=== PATIENT | male | born 1950 | race Caucasian/White ===

== ENCOUNTER 2021-09-03 15:52 | Inpatient (IN) | payer OTHER, MEDICARE ==
[2021-09-03] MEDS ORDERED: MORPHINE SULFATE 4 MG/ML SYRINGE IVP STA (16:30)
[2021-09-03] MEDS ORDERED: ONDANSETRON 4 MG/2 ML VIAL IVP STA (16:30)
--- NOTE | 2021-09-03 17:03 | XR ---
EXAMINATION TYPE: XR ankle limited RT DATE OF EXAM: 09/03/2021 COMPARISON: NONE HISTORY: Ankle pain TECHNIQUE: 2 views FINDINGS: There is oblique fracture of the distal tibia and fibula. There is 50% lateral displacement of the distal tibia fragment and 100% medial displacement of the distal fibular fragment. The ankle mortise is anatomic. There is plantar calcaneal spurring. IMPRESSION: Fractures of distal tibia and fibula. No ankle joint abnormality.
--- NOTE | 2021-09-03 17:05 | XR ---
EXAMINATION TYPE: XR tibia fibula RT DATE OF EXAM: 09/03/2021 COMPARISON: NONE HISTORY: Pain TECHNIQUE: 4 views FINDINGS: There are oblique fractures of the distal shaft of the tibia and fibula described in the [facility] x-ray report. There is 50% lateral displacement distal tibia fragment and 100% medial displacemen t distal fibular fragment. There is oblique fracture through the proximal shaft of the fibula with 100% offset. The knee joint a ppears anatomic. No knee joint effusion. IMPRESSION: Multiple acute fractures of the tibia and fibula as above.
[2021-09-03] MEDS ORDERED: NALOXONE 0.4 MG/ML 1 ML VIAL IV PRN (17:20)
[2021-09-03] MEDS ORDERED: ONDANSETRON 4 MG/2 ML VIAL IVP PRN (17:20)
--- NOTE | 2021-09-03 17:26 | ED ---
Fall HPI - General Source: patient, EMS Mode of arrival: EMS <Venice Tuttle - Last Filed: 09/04/21 00:20> <Nathaniel Leeah Jasmin - Last Filed: 09/10/21 00:06> - General Chief Complaint: Fall Stated Complaint: trauma rt ankle Time Seen by Provider: 09/03/21 16:11 - History of Present Illness Initial Comments: 71-year-old male patient presents to the emergency department via EMS for evaluation of right leg pain after a slip and fall injury. Patient states he is walking in the driveway he slipped felt a snap in his leg and then fell down. He was able to crawl backwards to get into the house to call 911. He denies hitting his head or losing consciousness. He denies any neck or back pain. States most of his pain is in the mid to lower leg. Denies numbness or tingling to the foot. He denies any history of injury to this leg. Denies use of blood thinning medications. Patient denies any chest pain, shortness of breath, dizziness, weakness, abdominal pain, nausea, vomiting, or difficulties with bowel movements or urination. (Venice Tuttle) - Related Data Home Medications Medication Instructions Recorded Confirmed Multivit-Min/FA/Lycopen/Lutein 1 tab PO DAILY 09/03/21 09/03/21 [Centrum Silver Men Tablet] Tamsulosin [Flomax] 0.4 mg PO HS 09/03/21 09/03/21 amLODIPine [Norvasc] 5 mg PO DAILY 09/03/21 09/03/21 Previous Rx's Medication Instructions Recorded Aspirin 325 mg PO DAILY #21 tab 09/07/21 Cyclobenzaprine [Flexeril] 10 mg PO HS #20 tab 09/07/21 HYDROcodone/APAP 7.5-325MG [Chandler 1 - 2 each PO Q6HR PRN #32 tab 09/07/21 7.5] Sennosides/Docusate Sodium [Senna 1 each PO DAILY #20 capsule 09/07/21 Plus 8.6-50 mg Softgel] Allergies Allergy/AdvReac Type Severity Reaction Status Date / Time No Known Allergies Allergy Verified 09/03/21 19:54 Review of Systems ROS Other: All systems not noted in ROS Statement are negative. <Venice Tuttle - Last Filed: 09/04/21 00:20> ROS Other: All systems not noted in ROS Statement are negative. <Lin Lee - Last Filed: 09/10/21 00:06> ROS Statement: Those systems with pertinent positive or pertinent negative responses have been documented in the HPI. Past Medical History Past Medical History: Hypertension, Prostate Disorder History of Any Multi-Drug Resistant Organisms: None Reported Past Surgical History: No Surgical Hx Reported Past Psychological History: No Psychological Hx Reported Smoking Status: Never smoker Past Alcohol Use History: Daily Past Drug Use History: Marijuana <Venice Tuttle - Last Filed: 09/04/21 00:20> General Exam Limitations: no limitations General appearance: alert, in no apparent distress, other (Physical well- developed, well-nourished adult male in no acute distress.) Head exam: Present: atraumatic, normocephalic, normal inspection ENT exam: Present: normal exam, normal oropharynx, mucous membranes moist Neck exam: Present: normal inspection, full ROM, other (Nontender, no step-off, no deformity to firm midline palpation of the posterior cervical spine. Full range of motion without pain or limitation.). Absent: tenderness, meningismus, lymphadenopathy Respiratory exam: Present: normal lung sounds bilaterally. Absent: respiratory distress, wheezes, rales, rhonchi, stridor Cardiovascular Exam: Present: regular rate, normal rhythm, normal heart sounds. Absent: systolic murmur, diastolic murmur, rubs, gallop, clicks GI/Abdominal exam: Present: soft, normal bowel sounds. Absent: distended, tenderness, guarding, rebound, rigid Extremities exam: Present: full ROM, normal capillary refill, other (There is swelling and ecchymosis noted to the mccloud on the right. Edema noted about the right ankle. Skin to the leg is pink, warm, dry. Cap refill less than 3 seconds. Pedal pulses 2+.). Absent: normal inspection, tenderness, pedal edema, joint swelling, calf tenderness Back exam: Present: normal inspection, other (Nontender, no step-off, no deformity to firm midline palpation of the thoracic and lumbar vertebrae. Full range of motion without pain or limitation.). Absent: vertebral tenderness Neurological exam: Present: alert, oriented X3, CN II-XII intact Psychiatric exam: Present: normal affect, normal mood Skin exam: Present: warm, dry, intact, normal color. Absent: rash <Venice Tuttle - Last Filed: 09/04/21 00:20> Course Vital Signs 09/03/21 09/03/21 09/03/21 16:02 16:53 19:45 Temperature 98.8 F 98.0 F Pulse Rate 87 93 98 Pulse Rate [ Pulse Oximetery ] Respiratory 20 20 20 Rate Blood Pressure 125/78 130/54 131/82 Blood Pressure [Right Arm Supine] O2 Sat by Pulse 97 97 96 Oximetry 09/03/21 20:00 Temperature 98.4 F Pulse Rate Pulse Rate [ 88 Pulse Oximetery ] Respiratory 18 Rate Blood Pressure Blood Pressure 130/84 [Right Arm Supine] O2 Sat by Pulse 94 L Oximetry Procedures - Orthopedic Fracture Reduction Fracture #1 Consent Obtained: verbal consent Side: right Fracture Reduction Location: tibia, fibula Analgesia: other (Dilaudid, Ativan IVP) Technique: direct manipulation, traction/counter-traction Post Reduction X-rays Demonstrate: other (No change in position of fracture fragments, foot is now in anatomical alignmen.) Post-Reduction Neuro Exam: intact, no change Post-Reduction Vascular Exam: intact, no change Splint Applied: Yes Patient Tolerated Procedure: well, no complications - Orthopedic Splinting/Casting Injury #1 Side: right Lower Extremity Injury Location: long leg Lower Extremity Immobilizer: posterior splint, stirrup splint, Alex wrap, sy nthetic pre-padded splint <Venice Tuttle - Last Filed: 09/04/21 00:20> Medical Decision Making - Lab Data Result diagrams: 09/03/21 17:36 09/03/21 17:36 - EKG Data -: EKG Interpreted by Oh - Radiology Data Radiology results: report reviewed, image reviewed <Venice Tuttle - Last Filed: 09/04/21 00:20> - Lab Data Result diagrams: 09/06/21 02:57 09/06/21 02:57 <Lin Lee - Last Filed: 09/10/21 00:06> - Medical Decision Making 71-year-old male patient presented to the emergency department today for evaluation of right lower leg pain after a slip and fall in his driveway. Physical examination did reveal soft tissue swelling, abnormal external rotation of the right foot. Xrays reviewed and showed proximal and distal fibula fracture, distal tibial shaft fracture. Significant displacement of all fragments. Ankle is intact. We were able to improve alignment of the foot, placed a splint. Labs, EKG, x-ray were entered for presurgical clearance. Dr. Goodman lam is excepting. We'll consult medicine for clearance. Patient is agreeable this plan. My attending is . (Venice Tuttle) I was available for consultation in the emergency department. The history and physical exam were done by the midlevel provider. I was consulted for this patients care. I reviewed the case with the midlevel provider and based on their presentation of the patient, I agree with the assessment, medical decision making and plan of care as documented. Chart was dictated using [employer] dictation software. Attempts were made to correct any dictation errors however some typographical errors may persist. Patient was seen during a national state of emergency due to the Covid-19 pandemic. (Lin Lee) - Lab Data Lab Results 09/03/21 09/03/21 09/03/21 Range/Units 17:36 17:36 17:36 WBC 17.5 H (3.8-10.6) k/uL RBC 4.72 (4.30-5.90) m/uL Hgb 16.3 (13.0-17.5) gm/dL Hct 48.1 (39.0-53.0) % MCV 101.9 H (80.0-100.0) fL MCH 34.5 (25.0-35.0) pg MCHC 33.8 (31.0-37.0) g/dL RDW 13.3 (11.5-15.5) % Plt Count 168 (150-450) k/uL MPV 8.2 Neutrophils % 87 % Lymphocytes % 7 % Monocytes % 4 % Eosinophils % 0 % Basophils % 0 % Neutrophils # 15.3 H (1.3-7.7) k/uL Lymphocytes # 1.2 (1.0-4.8) k/uL Monocytes # 0.7 (0-1.0) k/uL Eosinophils # 0.1 (0-0.7) k/uL Basophils # 0.1 (0-0.2) k/uL Macrocytosis Slight PT 10.4 (9.0-12.0) sec INR 0.9 (<1.2) APTT 23.9 (22.0-30.0) sec Sodium 135 L (137-145) mmol/L Potassium 4.1 (3.5-5.1) mmol/L Chloride 102 (98-107) mmol/L Carbon Dioxide 24 (22-30) mmol/L Anion Gap 9 mmol/L BUN 12 (9-20) mg/dL Creatinine 0.72 (0.66-1.25) mg/dL Est GFR (CKD-EPI)AfAm >90 (>60 ml/min/1.73 sqM) Est GFR (CKD-EPI)NonAf >90 (>60 ml/min/1.73 sqM) Glucose 120 H (74-99) mg/dL Calcium 9.2 (8.4-10.2) mg/dL Total Bilirubin 0.7 (0.2-1.3) mg/dL AST 26 (17-59) U/L ALT 17 (4-49) U/L Alkaline Phosphatase 110 (38-126) U/L Total Protein 7.2 (6.3-8.2) g/dL Albumin 4.3 (3.5-5.0) g/dL TSH (0.350-5.500) uIU/mL Coronavirus (PCR) (Not Detectd) Blood Type Blood Type Confirm Blood Type Recheck Bld Type Recheck Status Antibody Screen Spec Expiration Date 09/03/21 09/03/21 09/03/21 Range/Units 17:36 17:36 20:51 WBC (3.8-10.6) k/uL RBC (4.30-5.90) m/uL Hgb (13.0-17.5) gm/dL Hct (39.0-53.0) % MCV (80.0-100.0) fL MCH (25.0-35.0) pg MCHC (31.0-37.0) g/dL RDW (11.5-15.5) % Plt Count (150-450) k/uL MPV Neutrophils % % Lymphocytes % % Monocytes % % Eosinophils % % Basophils % % Neutrophils # (1.3-7.7) k/uL Lymphocytes # (1.0-4.8) k/uL Monocytes # (0-1.0) k/uL Eosinophils # (0-0.7) k/uL Basophils # (0-0.2) k/uL Macrocytosis PT (9.0-12.0) sec INR (<1.2) APTT (22.0-30.0) sec Sodium (137-145) mmol/L Potassium (3.5-5.1) mmol/L Chloride (98-107) mmol/L Carbon Dioxide (22-30) mmol/L Anion Gap mmol/L BUN (9-20) mg/dL Creatinine (0.66-1.25) mg/dL Est GFR (CKD-EPI)AfAm (>60 ml/min/1.73 sqM) Est GFR (CKD-EPI)NonAf (>60 ml/min/1.73 sqM) Glucose (74-99) mg/dL Calcium (8.4-10.2) mg/dL Total Bilirubin (0.2-1.3) mg/dL AST (17-59) U/L ALT (4-49) U/L Alkaline Phosphatase (38-126) U/L Total Protein (6.3-8.2) g/dL Albumin (3.5-5.0) g/dL TSH (0.350-5.500) uIU/mL Coronavirus (PCR) Not Detected (Not Detectd) Blood Type O Positive Blood Type Confirm O Positive Blood Type Recheck No Previous Record Bld Type Recheck Status CABO Indicated Antibody Screen NEGATIVE Spec Expiration Date 09/06/2021 - 233509/05/21 Range/Units 03:39 WBC (3.8-10.6) k/uL RBC (4.30-5.90) m/uL Hgb (13.0-17.5) gm/dL Hct (39.0-53.0) % MCV (80.0-100.0) fL MCH (25.0-35.0) pg MCHC (31.0-37.0) g/dL RDW (11.5-15.5) % Plt Count (150-450) k/uL MPV Neutrophils % % Lymphocytes % % Monocytes % % Eosinophils % % Basophils % % Neutrophils # (1.3-7.7) k/uL Lymphocytes # (1.0-4.8) k/uL Monocytes # (0-1.0) k/uL Eosinophils # (0-0.7) k/uL Basophils # (0-0.2) k/uL Macrocytosis PT (9.0-12.0) sec INR (<1.2) APTT (22.0-30.0) sec Sodium (137-145) mmol/L Potassium (3.5-5.1) mmol/L Chloride (98-107) mmol/L Carbon Dioxide (22-30) mmol/L Anion Gap mmol/L BUN (9-20) mg/dL Creatinine (0.66-1.25) mg/dL Est GFR (CKD-EPI)AfAm (>60 ml/min/1.73 sqM) Est GFR (CKD-EPI)NonAf (>60 ml/min/1.73 sqM) Glucose (74-99) mg/dL Calcium (8.4-10.2) mg/dL Total Bilirubin (0.2-1.3) mg/dL AST (17-59) U/L ALT (4-49) U/L Alkaline Phosphatase (38-126) U/L Total Protein (6.3-8.2) g/dL Albumin (3.5-5.0) g/dL TSH 0.855 (0.350-5.500) uIU/mL Coronavirus (PCR) (Not Detectd) Blood Type Blood Type Confirm Blood Type Recheck Bld Type Recheck Status Antibody Screen Spec Expiration Date - EKG Data EKG Comments: EKG obtained at 1820 shows sinus rhythm with a rate of 88, MA interval 163, QRS duration 98, QT 366, QTc 412. No evidence of ST elevation or depression. ( Venice Tuttle) - Radiology Data 2 views of the right ankle are obtained. Report was reviewed in its entirety. Impression by Dr. Vieira shows fractures of the distal tibia and fibula. No ankle joint abnormality. Views of the right tib-fib are obtained. Report is reviewed in its entirety. Impression by Dr. Vieira shows oblique fractures the distal shaft of the tibia and fibula described an ankle x-ray report. There is 50% lateral displacement of the distal tibia fragment 100% medial displacement of the distal fibular fragment. There is oblique fractures of the proximal shaft of the fibula for 100% offset. The knee joint appears anatomic. No knee joint effusion. Single view of the chest is obtained. Report reviewed in its entirety. Impression by Dr. Vickers shows mild interstitial fibrotic changes. Normal heart. 4 views of the right tib-fib are obtained. Report was reviewed in its entirety. Impression by Dr. Vieira shows multiple fractures without change in position compared to initial exam. (Venice Tuttle) Disposition Decision to Admit Reason: Admit from EC Decision Date: 09/03/21 Decision Time: 17:27 <Venice Tuttle - Last Filed: 09/04/21 00:20> <Lin Lee - Last Filed: 09/10/21 00:06> Clinical Impression: Fracture of right tibia and fibula Disposition: ADMITTED IP TO THIS [facility] Condition: Good
[2021-09-03 17:50] LABS: Basophils # (A) 0.1 k/uL (0-0.2); Basophils % (A) 0 %; Eosinophils # (A) 0.1 k/uL (0-0.7); Eosinophils % (A) 0 %; HCT 48.1 % (39.0-53.0); HGB 16.3 gm/dL (13.0-17.5); Lymphocytes # (A) 1.2 k/uL (1.0-4.8); Lymphocytes % (A) 7 %; MCH 34.5 pg (25.0-35.0); MCHC 33.8 g/dL (31.0-37.0); MCV 101.9 fL (80.0-100.0); Macrocytosis Slight; Mean Platelet Volume 8.2; Monocytes # (A) 0.7 k/uL (0-1.0); Monocytes % (A) 4 %; Neutrophils # (A) 15.3 k/uL (1.3-7.7); Neutrophils % (A) 87 %; Platelet Count 168 k/uL (150-450); RBC 4.72 m/uL (4.30-5.90); RDW 13.3 % (11.5-15.5); WBC 17.5 k/uL (3.8-10.6)
--- NOTE | 2021-09-03 17:50 | XR ---
EXAMINATION TYPE: XR chest 1V DATE OF EXAM: 09/03/2021 COMPARISON: NONE HISTORY: Preop TECHNIQUE: Single view FINDINGS: There is no heart failure no confluent pneumonic infiltrate. Costophrenic angles are clear. There is slight coarsening of interstitial markings. IMPRESSION: Mild interstitial fibrotic changes. Normal heart.
[2021-09-03 17:57] LABS: ALT 17 U/L (4-49); AST 26 U/L (17-59); African American GFR (CKD) >90 (>60 ml/min/1.73 sqM); Albumin 4.3 g/dL (3.5-5.0); Alkaline Phosphatase 110 U/L (38-126); Anion Gap 9 mmol/L; Blood Urea Nitrogen 12 mg/dL (9-20); Calcium 9.2 mg/dL (8.4-10.2); Carbon Dioxide 24 mmol/L (22-30); Chloride 102 mmol/L (98-107); Glucose 120 mg/dL (74-99); Non-African American GFR(CKD) >90 (>60 ml/min/1.73 sqM); Potassium 4.1 mmol/L (3.5-5.1); Sodium 135 mmol/L (137-145); Total Bilirubin 0.7 mg/dL (0.2-1.3); Total Protein 7.2 g/dL (6.3-8.2)
[2021-09-03 18:01] LABS: INR 0.9 (<1.2); Partial Thromboplastin Time 23.9 sec (22.0-30.0); Prothrombin Time 10.4 sec (9.0-12.0)
[2021-09-03] MEDS ORDERED: LORazepam 2 MG/ML INJ IV STA (18:23)
[2021-09-03] MEDS ORDERED: HYDROmorphone 1 MG/ML 1 ML SYRINGE IVP STA (18:23)
--- NOTE | 2021-09-03 19:19 | XR ---
EXAMINATION TYPE: XR tibia fibula RT DATE OF EXAM: 09/03/2021 COMPARISON: Today HISTORY: Post reduction TECHNIQUE: 4 views FINDINGS: There are fractures of the distal tibia and fibula. There is 50% lateral displacement dista l tibia fragment. There is 100% medial displacement distal fibular fragment. There is oblique fractur e of the proximal shaft of the fibula. Ankle joint and knee joint appear anatomic. IMPRESSION: Multiple fractures without change in position compared to initial exam.
[2021-09-04] MEDS: MORPHINE SULFATE 4 MG/ML SYRINGE IV PRN ×2 (05:57→21:05)
--- NOTE | 2021-09-04 09:52 | P.HPOR ---
History of Present Illness H&P Date: 09/04/21 Chief Complaint: right leg pain Patient is a 71-year-old male presenting to the emergency department yesterday, 09/03/2021 with a chief complaint of right leg pain after fall. Patient was seen this morning at bedside with Alex bandage over right lower extremity. Patient says yesterday he was in his driveway walking when he slipped and heard a snap as he fell to the ground. Patient says he was able to crawl into his house and called 911. Patient denies any loss of consciousness/hitting his head. Patient says most of his pain is in his lower leg on the right side. Patient denies back pain/pain in any other extremities/joints. Patient states there is some radiation of pain up to his knee. Patient says he is not on any blood thinners. Patient denies any previous orthopedic surgical history. Patient denies chest pain, fever, shortness of breath, nausea, vomiting, change in vision, loss of bowel/bladder control. Patient denies any numbness/tingling in the leg. Patient denies any saddle anesthesia. Past Medical History Past Medical History: Hypertension, Prostate Disorder Additional Past Medical History / Comment(s): Had issues with kidney's possibly needed a stent; never followed through History of Any Multi-Drug Resistant Organisms: None Reported Past Surgical History: No Surgical Hx Reported Additional Past Surgical History / Comment(s): colonoscopy Past Anesthesia/Blood Transfusion Reactions: No Reported Reaction Past Psychological History: No Psychological Hx Reported Smoking Status: Never smoker Past Alcohol Use History: Daily Past Drug Use History: Marijuana Medications and Allergies Home Medications Medication Instructions Recorded Confirmed Type Multivit-Min/FA/Lycopen/Lutein 1 tab PO DAILY 09/03/21 09/03/21 History [Centrum Silver Men Tablet] Tamsulosin [Flomax] 0.4 mg PO HS 09/03/21 09/03/21 History amLODIPine [Norvasc] 5 mg PO DAILY 09/03/21 09/03/21 History Allergies Allergy/AdvReac Type Severity Reaction Status Date / Time No Known Allergies Allergy Verified 09/03/21 19:54 Physical Examination Inspection: Alex bandage and a posterior short leg and stirrup splint is present on the right lower extremity. There is significant swelling and ecchymosis on the right mccloud edema present in the right ankle. Sensations equal, symmetric, bilateral intact throughout the upper and lower extremities. Significant TTP along the right lower extremity especially in the mccloud. NTTP throughout rest of exam. Patient is able to wiggle toes in right foot. Dorsalis pedis pulses are intact 2+. Capillary refill under 3 seconds in digits of foot. Patient is able to lift right leg off of bed under his own power. Patient does have limited range of motion in right ankle dorsi/plantar flexion. Patient unable to flex at his right knee at this time. Motor - 2+/5 resisted knee flexion/extension and right ankle dorsi/plantar flexion. Other extremities 5+/5 in all the major motor groups. Negative Homans bilaterally. Results - Labs Labs: Abnormal Lab Results - Last 24 Hours (Table) 09/03/21 09/03/21 Range/Units 17:36 17:36 WBC 17.5 H (3.8-10.6) k/uL MCV 101.9 H (80.0-100.0) fL Neutrophils # 15.3 H (1.3-7.7) k/uL Sodium 135 L (137-145) mmol/L Glucose 120 H (74-99) mg/dL H & H 09/03/21 Range/Units 17:36 Hgb 16.3 (13.0-17.5) gm/dL Hct 48.1 (39.0-53.0) % Coagulation 09/03/21 Range/Units 17:36 INR 0.9 (<1.2) Result Diagrams: 09/03/21 17:36 09/03/21 17:36 Assessment and Plan Assessment: 1. Right tibia distal shaft fracture; right fibula fracture Plan: 1. Right tibia distal shaft fracture; right fibula fracture - patient stable this morning seen at bedside in a posterior short leg and stirrup splint. X- rays of the right tibia/fibula reveal distal tibial shaft fracture with mild displacement distal tibia fragment. Oblique fracture of the proximal shaft of the fibula; medial displacement of the distal fibular fragment. Ankle joint and knee joint appear stable and intact. Plan is to take patient to surgery today, 09/04/2021 - right tibia intramedullary nail fixation with the potential for plate/screws in the fibula. Patient to remain nothing by mouth and nonweightbearing on the right lower extremity 2. Appreciate medical management 3. Pain management - Morphine 4. GI ppx 5. PT/OT - NWB RLE Time with Patient: Less than 30
[2021-09-04] MEDS ORDERED: LACTATED RINGERS 1,000 ML IV ONE ×2 (10:34→13:13)
[2021-09-04] MEDS ORDERED: fentaNYL (PF) 50 MCG/ML 2 ML AMP ONE (11:21)
[2021-09-04] MEDS ORDERED: PROPOFOL 10 MG/ML 20 ML VIAL IV ONE (11:21)
[2021-09-04] MEDS ORDERED: MIDAZOLAM 2 MG/2 ML VIAL ONE (11:21)
[2021-09-04] MEDS ORDERED: PHENYLEPHRINE-0.9% NACL SYG 1,000 MCG/10 ML SYRINGE ONE (11:21)
[2021-09-04] MEDS ORDERED: SUCCINYLCHOLINE CHLORIDE 100 MG/5 ML SYR IV ONE (11:21)
[2021-09-04] MEDS ORDERED: ceFAZolin 1,000 MG in SODIUM CHLORIDE 0.9% 1,000 ML IRRIGATION ONE (11:22)
[2021-09-04] MEDS: HYDROmorphone 0.5 MG/0.5 ML SYRINGE IVP ONE ×2 (13:43→14:05)
[2021-09-04] MEDS ORDERED: HYDROcodone/APAP 7.5-325MG 1 EACH TAB PO PRN (13:48)
[2021-09-04] MEDS ORDERED: KETOROLAC 30 MG/ML 1 ML VIAL IVP STA (13:49)
[2021-09-04] MEDS ORDERED: KETOROLAC 15 MG/ML 1 ML VIAL IVP ONE (13:49)
[2021-09-04] MEDS ORDERED: HYDROmorphone 1 MG/ML 1 ML SYRINGE IVP PRN (13:51)
[2021-09-04] MEDS ORDERED: ACETAMINOPHEN TAB 325 MG TAB PO PRN (13:51)
--- NOTE | 2021-09-04 14:09 | FL ---
Fluoroscopy INDICATION: Pain FINDINGS: Fluoroscopy time: 3 minutes 14 seconds. Images obtained: 24. IMPRESSIONS: 1. Documentation of fluoroscopy.
--- NOTE | 2021-09-04 14:09 | XR ---
Fluoroscopy INDICATION: Pain FINDINGS: Fluoroscopy time: 3 minutes 14 seconds. Images obtained: 0. IMPRESSIONS: 1. Documentation of fluoroscopy.
[2021-09-04] MEDS ORDERED: LORazepam 2 MG/ML INJ IV PRN (19:30)
--- NOTE | 2021-09-04 20:07 | CONS ---
CONSULTATION DATE OF SERVICE: 09/04/2021 REASON FOR CONSULTATION: Advice regarding hypertension and other medical issues, requested by Orthopedic Surgery. HISTORY OF PRESENT ILLNESS: This 71-year-old gentleman with a past medical history of hypertension, being followed by [facility] in the outpatient setting, was admitted with right tibia shaft fracture and right fibular fracture. The patient underwent surgery by Orthopedic Surgery. The patient is being closely monitored. No chest pain. No palpitations. No fever. The patient slipped and fell. PAST MEDICAL HISTORY: Hypertension, prostate disorder. HOME MEDICATIONS: Norvasc, Flomax. Doses are reviewed. ALLERGIES: NONE. FAMILY HISTORY: No history of heart disease or strokes in the family. SOCIAL HISTORY: History of alcohol, 2-3 beers per day. THC. REVIEW OF SYSTEMS: Fourteen-point review of systems negative except as mentioned above. PHYSICAL EXAMINATION: Pulse 75, blood pressure 120/70, respirations 16, temperature 97.3, pulse ox 98% on 6 L. HEENT: Conjunctivae normal. Oral mucosa moist. NECK: No jugular venous distention. CARDIOVASCULAR: S1, S2 muffled. RESPIRATION: Breath sounds diminished at the bases. A few scattered rhonchi. ABDOMEN: Soft, nontender. LEGS: Status post surgery. NERVOUS SYSTEM: No focal deficit. LABS: WBC 17.3, sodium 135. ASSESSMENT: 1. Right tibial shaft and fibular fracture, status post surgery. 2. Hypertension. RECOMMENDATIONS AND DISCUSSION: In this 71-year-old gentleman who presented after surgery, at this time I recommend to continue current medications, continue symptomatic treatment. DVT prophylaxis. Resume the home medications. Monitor blood pressure closely. Further recommendations to follow. Follow up with [facility] as an outpatient after discharge. MMODL / IJN: [id number] / NAREN
[2021-09-04] MEDS: CYCLOBENZAPRINE 10 MG TAB PO SCH (21:05)
[2021-09-05] MEDS: HYDROcodone/APAP 7.5-325MG 1 EACH TAB PO PRN ×2 (08:32→15:04)
[2021-09-05] MEDS: SENNOSIDES 8.6 MG TAB PO SCH (08:33)
--- NOTE | 2021-09-05 09:19 | P.PN ---
Subjective Progress Note Date: 09/05/21 Principal diagnosis: Right tibia and fibula fracture Patient seen and examined Jenny doing fairly well he is complaining of some pain in his right lower extremity however it seems to be better now that it is stable compared to before. He states no numbness or tingling he states he has not been up yet been sitting up in bed and eating breakfast. Denies any fevers chills shortness of breath or chest pain at this time Objective - Vital Signs Vital signs: Vital Signs Temp 99.3 F 09/05/21 05:44 Pulse 86 09/05/21 05:44 Resp 17 09/05/21 05:44 BP 109/67 09/05/21 05:44 Pulse Ox 93 L 09/05/21 05:44 Intake & Output 09/04/21 09/05/21 09/05/21 18:59 06:59 18:59 Intake Total 1101 Output Total 100 700 600 Balance 1001 -700 -600 Intake: IV 1101 Output: Urine 700 600 Estimated Blood Loss 100 Other: Voiding Method Urinal Urinal # Voids 2 - Exam Vital signs stable afebrile NAD A OX3 Right lower extremity exam: Swelling and ecchymosis about the right lower extremity wrapped in place. Incisions are clean dry and intact. He has some tenderness to palpation around the lower leg which is expected due to the fracture. He has 5 over 5 strength in dorsi flexion plantar flexion EHL FHL compartments are soft and compressive palpable pulses distally good capillary refill less than 2 seconds all toes. Sensation intact to light touch in L2 S1 nerve distribution. - Labs CBC & Chem 7: 09/03/21 17:36 09/03/21 17:36 Assessment and Plan Assessment: 71-year-old male postop day 1 right tibia intramedullary nail fixation for distal one third tib-fib fracture Plan: -Appreciate marketing consultant and team management. -Activity: Ambulate QID, OOB all meals, up and about, limit lifting bending twisting to less than 5 lbs. Use walker or cane if needed for stability. -Daily PT/OT, increase ambulation strength and balance. -Cam Walker boot right lower extremity, 50% weightbearing -Pain control: [Adequate at this time] -Meds: [reviewed] -GI ppx: senna, Miralax -DC gamboa when up and about, bedside commode if needed -DVT PPX: Start Lovenox today -Hygiene: Shower today. Maintain dressing clean and dry. Meticulous cleaning after BMs away from incision site -Encourage IS 10x/hr -Dispo: [Pending]
--- NOTE | 2021-09-05 10:36 | P.OP ---
Date of Procedure: 09/04/21 Preoperative Diagnosis: 1. Right distal 1/3 tibia and fibular fracture with proximal fibular fracture 2. s/p ffs Postoperative Diagnosis: 1. Right distal 1/3 tibia and fibular fracture with proximal fibular fracture 2. s/p ffs Procedure(s) Performed: 1. Right tibia intramedullary nail fixation via suprapatellar approach Implants: [employer] Anesthesia: GETA Surgeon: Nimesh Trevizo Otolaryngology Physician #1: Armand Barraza (Was present and assisted in opening, positioning, hardware placement and closure. ) Estimated Blood Loss (ml): 150 IV fluids (ml): 2,000 Urine output (ml): 0 Pathology: none sent Condition: stable Disposition: PACU Indications for Procedure: Orthopedic Surgery Risk Review Irvin Nino is a 71-year-old male presenting for evaluation of sudden onset right leg pain, inability to ambulate after slipped and fall on ice in his driveway. It was my pleasure to have seen and examined Irvin. In our visit today we have had a chance to go over subjective complaints, physical examination findings and treatments including the natural course history without intervention and various interventional options. His imaging demonstrates right distal one third tibial shaft and fibular shaft fracture with proximal fibular fracture associated displaced comminuted shortened and rotated. On physical exam, Irvin demonstrates pain with motion of right lower extremity, which is NV intact at this time. I have explained to the patient that this fracture needs stabilization. Based on the patients imaging, physical exam, and the rapid progression and disabling nature of her symptoms, at this time I recommend surgery in the form or a: Intramedullary nail fixation right tibia I discussed the risk and benefits of this procedure at length with Irvin and his son with a phone. Questions were invited and answered, and the patient wishes to proceed as outlined below. Currently, I am recommendin. Right tibia intramedullary nail fixation 2. Review of surgical risks and benefits as well as an educational packet on the proposed surgical procedure. Risks: All surgical procedures come with inherent risks, including those related to positioning, anesthesia, intraoperative findings, and postoperative complications. It is important to understand that surgery does not come with any guarantee of a successful outcome as complications and adverse events are always possible. The patient was given a handout discussing the surgical procedure and risks associated with the intervention, both of which were discussed with the patient. These risks include but are not limited to the following: - Experiencing same, different or even worse symptoms compared to before surgery. - Requiring further surgery or other forms of treatment presently or at some time in the future . - On an extreme but fortunately relatively rare basis severe complication such as blindness, stroke, heart attack, temporary and/or permanent nerve injury, paralysis, coma, or may occur, sometimes without known explanation. - Surgical complications may include but are not limited to risk of infection, fluid accumulation in the surgical dissection site, including a serom a or hematoma, that requires additional surgery, wound drainage, bleeding, new numbness or weakness, vision changes/loss, spinal fluid leakage, non-healing and/or infected incision, headaches, difficulty or inability to swallow, hoarseness, hemopneumothorax, pneumothorax, injury to nerves, spinal cord, blood vessels, lymphatics or other vital organs (i.e., bowel injury, injury to the great vessels); heterotopic bone formation; complications related to the hardware such as screws, rods, including misplaced hardware, device failure, hardware fracture/breakage, or hardware loosening; retained surgical instrumentations or devices and the need for further surgery. - Medical risks of the planned surgery include but are not limited to generalized Infections to the whole body or local areas outside of the surgical site (sepsis), heart attack, bleeding, anaphylaxis, meningitis, seizure, epilepsy, hearing loss, burn varma, laceration of the head or other areas of the body, bruising, hypersensitivity of the skin, bladder over distension; allergic reaction; shoulder injury related to positioning; fat, blood and air clots to other areas of the body like heart, lungs, brain; failure of internal organs such as lungs, kidneys, liver and excessive bleeding. If blood transfusions are necessary, note that transfusions may cause intolerance reactions such as anaphylaxis or other complex reactions. Despite best efforts, the results of surgery might not heal in terms of bone, soft tissues such as skin, fascia, ligaments, and joints. [facility] has multiple operating rooms with single and overlapping rooms running daily. They currently function under the required guidelines as produced by the [employer] Committee with regards to the overlapping rooms and will continue to comply with changes to this policy as they occur. The requirements include and are complied with as follows: (1) the critical portions of the overlapping rooms will not occur at the same time, (2) the attending physician will be physically present during the critical portions of the procedure and immediately available during the entire case, and (3) a back-up attending is designated should the primary attending not be immediately available. The patient has had a chance to review all the listed information, has been given print outs detailing this information, and has had all his/her questions answered to their satisfaction. It was my pleasure to have seen and examined Irvin Nino. In our visit today we have had a chance to go over my understanding of our patient's current condition, the natural course history without intervention and various interventional options. Questions were invited and answered, and the patient wishes to proceed as outlined above. I have seen and examined the patient for 25 minutes and we have spent more than 50% of the time in repeat and detailed counseling about the patient's condition, its natural course history with out and as much as can be predicted with surgery and re-review of various surgical treatment options. In conclusion, Irvin Nino requested we proceed with the above suggested surgery and are willing to accept risks and limitations of the suggested surgery as nature of the disease process and our best attempts at treatment for the condition. Thank you again for allowing us to be part of your patient's care. Please don't hesitate to contact me if you have any further questions. Signed and authenticated by: Nimesh Sexton [facility] [address] [place] [id number] Description of Procedure: The patient was seen and examined in the preoperative area. All preoperative protocols were followed. Informed consent was obtained risks and benefits of the procedure were discussed at length. Risks including bleeding infection damage to the surrounding tissue and risk of reoperation were discussed with the patient. Risk of anesthesia up to and including was a discussed with the patient. These are outlined in the risk reviewed. They were willing to accept these risks and all of the risks of surgery. The patient was given a weight- based dose of antibiotics in the form of 2 g Ancef. The patient was seen and evaluated by the anesthesia team who deemed them fit for surgery. The site was marked, the patient was willing to proceed with the procedure. The patient was transferred to the operative suite by the Department of anesthesia. There were then drifted off to sleep by the department of anesthesi a and GETA anesthesia was used. Once adequate anesthesia had been obtained the patient was carefully transferred to the operative bed. All bony prominences were padded accordingly. SCDs were placed on the nonoperative lower extremities. Arms were well padded. Right leg was exposed and was placed on a bone foam ramp tourniquet was placed on the patient's right upper leg. This was then secured to the table. All bony processes padded accordingly. Preoperative briefing was done with the operative team and everyone was ready for the procedure to start. The patients right leg was then prepped and draped in the normal sterile fashion. Timeout was then performed and all parties in agreement with the procedure to be performed. Skin incision was made proximal to the proximal pole of the patella taken through the quad tendon longitudinally. Suprapatellar approach was then taken to the tibia. Guide was placed through the knee and placed at the edge of the articular surface of the tibia anteriorly. Pin was then placed under AP and lateral fluoroscopic guidance we placed a guidepin for the starting reamer. Once the guidepin was in optimal position the guidepin was advanced and the opening reamer was placed and advanced over this. This was then removed and ball tip guidewire was then passed down the shaft of the tibia until the fracture was obtained we then reduced the fracture and pass the guidewire into the distal tip of the fracture to the physis scar. We confirmed this to be in a good position on lateral and then adjusted position on AP. A blocking screw was then placed on the medial portion of the distal fragment of the tibia due to the valgus alignment to help with reaming and placement. We then sequentially reamed the tibia to a 10 mm reamer which provided a large amount of chatter at the isthmus. This was reamed in the distal fragment. We then selected the nail sized it and impacted it over the ball-tipped guidewire. The blocking screw was replaced and repositioned to allow for better alignment and the fracture was held reduced while the nail was advanced under AP and lateral fluoroscopic guidance. Once the nail was in optimal position distally a ball-tipped guidewire is removed perfect circles were obtained distally for the distal locking screws and these were placed using a drill and measuring technique. These were placed under AP and lateral fluoroscopic guidance was confirmed them to be in good position. The placed a medial screw first followed by the anterior to posterior screw second. We then turned our attention proximally and the jig was used to target the proximal screws the screws were then measured and placed and locked into position. Once the screws were placed the fracture was visualized and was held in reduced position and was in adequate alignment. We then removed the jig from the nail can after confirming the screws to be in good position. The ankle was taken through a range of motion and was stable we did a stress view of the ankle which showed the syndesmosis to be stable distally as well as the mortise joint. The fracture was stable. We then copiously irrigated the wounds with normal sterile saline. #1 Vicryl was used to close the quad tendon proximally followed by 0 Vicryl in the deep subcu and 2 on the superficial subcu 200 to the superficial subcu stab wounds distally and proximally followed by skin robson in the skin the wound edges approximated very well wounds were then cleaned and dressed sterilely with Adaptic 4 x 4's Tegaderms and the leg was placed in a Alex wrap. The patient was then transferred back to their hospital bed. There were awakened by department of anesthesia having tolerated the procedure very well with no complications. The patient was then transported to the postoperative care unit in stable condition.
[2021-09-05] MEDS: ENOXAPARIN 30 MG/0.3 ML SYRINGE SQ SCH (15:19)
--- NOTE | 2021-09-05 15:24 | P.PN ---
Progress Note - Text Progress Note Date: 09/05/21 Post-op day 1 s/p tibia IM Nail fixation Patient is not stable enough to be discharged home today. He still needs CAM walker boot which has been ordered. Surgery was only performed yesterday. Patient still has not been up with physical therapy yet. Plan to discharge patient home or to [facility] tmrw vs Sunday.
--- NOTE | 2021-09-05 17:16 | PN ---
PROGRESS NOTE DATE OF SERVICE: 09/05/2021 This 71-year-old gentleman who was admitted after tibial fracture and surgery with intramedullary via suprapatellar approach is complaining of some right leg pain. No chest pain. No palpitation. PHYSICAL EXAMINATION: Pulse 86, blood pressureNTD, respiration 17. CHEST: Clear to auscultation. ABDOMEN: Soft, nontender. CARDIOVASCULAR: S1, S2 muffled. NERVOUS SYSTEM: No focal deficit. LEGS: Status post right leg surgery. LABS: Reviewed. ASSESSMENT: 1. Right tibial shaft and fibular fracture, status post intramedullary nailing. 2. Hypertension. RECOMMENDATIONS AND DISCUSSION: I recommend to continue current medications, continue with the monitoring, symptomatic treatment. Monitor blood pressure closely. DVT prophylaxis. Incentive spirometry. MMODL / IJN: [id number] / MTDD
[2021-09-05] MEDS: CYCLOBENZAPRINE 10 MG TAB PO SCH (20:06)
[2021-09-06 03:25] LABS: Basophils % (A) 0 %; Eosinophils # (A) 0.1 k/uL (0-0.7); Eosinophils % (A) 1 %; HCT 40.5 % (39.0-53.0); HGB 13.7 gm/dL (13.0-17.5); Lymphocytes # (A) 1.4 k/uL (1.0-4.8); Lymphocytes % (A) 13 %; MCH 34.2 pg (25.0-35.0); MCHC 33.9 g/dL (31.0-37.0); MCV 100.8 fL (80.0-100.0); Mean Platelet Volume 8.3; Monocytes # (A) 0.5 k/uL (0-1.0); Monocytes % (A) 5 %; Neutrophils # (A) 8.2 k/uL (1.3-7.7); Neutrophils % (A) 77 %; Platelet Count 136 k/uL (150-450); RBC 4.02 m/uL (4.30-5.90); WBC 10.6 k/uL (3.8-10.6)
[2021-09-06 03:34] LABS: ALT 15 U/L (4-49); AST 23 U/L (17-59); African American GFR (CKD) >90 (>60 ml/min/1.73 sqM); Albumin 3.4 g/dL (3.5-5.0); Albumin/Globulin Ratio 1.3; Alkaline Phosphatase 68 U/L (38-126); Anion Gap 6 mmol/L; Blood Urea Nitrogen 12 mg/dL (9-20); Calcium 8.6 mg/dL (8.4-10.2); Carbon Dioxide 27 mmol/L (22-30); Chloride 101 mmol/L (98-107); Globulin 2.7 g/dL; Glucose 115 mg/dL (74-99); Non-African American GFR(CKD) 90 (>60 ml/min/1.73 sqM); Potassium 3.8 mmol/L (3.5-5.1); Sodium 134 mmol/L (137-145); Total Bilirubin 1.4 mg/dL (0.2-1.3); Total Protein 6.1 g/dL (6.3-8.2)
[2021-09-06] MEDS: SENNOSIDES 8.6 MG TAB PO SCH (09:04)
[2021-09-06] MEDS: HYDROcodone/APAP 7.5-325MG 1 EACH TAB PO PRN ×2 (09:04→16:41)
[2021-09-06] MEDS: ENOXAPARIN 30 MG/0.3 ML SYRINGE SQ SCH (09:05)
[2021-09-06 14:38] LABS: Appearance,Urine Clear (Clear); Bilirubin,Urine 1+ (Negative); Blood,Urine Negative (Negative); Color,Urine Dark Yellow; Glucose,Urine (UA) Negative (Negative); Ketones,Urine Trace (Negative); Leukocyte Esterase,Urine Negative (Negative); Mucus,Urine Rare /hpf; Nitrite,Urine Negative (Negative); Protein,Urine 1+ (Negative); RBC,Urine 1 /hpf (0-5); Specific Gravity,Urine 1.031 (1.001-1.035); WBC,Urine 1 /hpf (0-5)
--- NOTE | 2021-09-06 15:19 | PN ---
PROGRESS NOTE DATE OF SERVICE: 09/06/2021 This 71-year-old gentleman who was admitted with acute tibial fracture had surgery. The patient is complaining of severe pain. No chest pain. No palpitation. PHYSICAL EXAMINATION: Pulse 78, blood pressure 120/70, respiration 18. CHEST: Clear to auscultation. ABDOMEN: Soft. Non-tender. NERVOUS SYSTEM: No focal deficit. EXAMINATION OF RIGHT LEG: Status post surgery. LABS: Reviewed. ASSESSMENT: 1. Right tibial shaft and fibular fracture, status post intramedullary nailing. 2. Hypertension. RECOMMENDATIONS AND DISCUSSION: I recommend to continue current medications, continue with the monitoring, symptomatic treatment. Incentive spirometry. DVT prophylaxis. Resume the home medications. Follow up with [facility] in the outpatient setting. ROSSY / CARINE: [id number] /
--- NOTE | 2021-09-06 15:23 | P.PN ---
Subjective Progress Note Date: 09/06/21 Principal diagnosis: distal tibia fracture; fibula fracture Patient was seen at bedside this morning resting sitting up in chair with Cam Walker boot on right lower extremity. Patient says he does not want to rehab. Patient says he is able to go to his son's house. Patient says he is in moderate amount of pain along his right mccloud, however, he says is getting better since yesterday. Patient says he did get up with physical therapy and got up in the chair already this morning. Patient denies chest pain, fever, shortness breath, nausea, vomiting, change in vision, loss of bowel/bladder control. Objective - Vital Signs Vital signs: Vital Signs Temp 98.5 F 09/06/21 14:00 Pulse 70 09/06/21 14:00 Resp 18 09/06/21 14:00 BP 115/62 09/06/21 14:00 Pulse Ox 95 09/06/21 14:00 Intake & Output 09/05/21 09/06/21 09/06/21 18:59 06:59 18:59 Intake Total 1080 Output Total 1200 Balance -120 Intake: Oral 1080 Output: Urine 1200 Other: Voiding Method Urinal # Voids 2 1 - Exam Inspection: Alex bandage and CAM walker boot present over RLE Moderate TTP along the right lower extremity especially in the mccloud. NTTP throughout rest of exam. Patient is able to wiggle toes in right foot. Dorsalis pedis pulses are intact 2+. Capillary refill under 3 seconds in digits of foot. Patient is able to lift right leg off of bed under his own power. Patient does have limited range of motion in right ankle dorsi/plantar flexion. Motor - 3+/5 resisted knee flexion/extension and right ankle dorsi/plantar flexion. Other extremities 5+/5 in all the major motor groups. Negative Homans bilaterally. - Labs CBC & Chem 7: 09/06/21 02:57 09/06/21 02:57 Labs: Abnormal Lab Results - Last 24 Hours (Table) 09/06/21 09/06/21 09/06/21 Range/Units 02:57 02:57 13:50 RBC 4.02 L (4.30-5.90) m/uL MCV 100.8 H (80.0-100.0) fL Plt Count 136 L (150-450) k/uL Neutrophils # 8.2 H (1.3-7.7) k/uL Sodium 134 L (137-145) mmol/L Glucose 115 H (74-99) mg/dL Total Bilirubin 1.4 H (0.2-1.3) mg/dL Total Protein 6.1 L (6.3-8.2) g/dL Albumin 3.4 L (3.5-5.0) g/dL Urine Protein 1+ H (Negative) Urine Ketones Trace H (Negative) Urine Bilirubin 1+ H (Negative) Urine Mucus Rare H (None) /hpf Assessment and Plan Assessment: 1. Right tibia distal shaft fracture; right fibula fracture post-op day #2 s/p tibia IM nail fixation Plan: 1. Right tibia distal shaft fracture; right fibula fracture - patient stable this morning seen at bedside in chair in CAM walker boot. surgery performed, 09/04/2021 - right tibia intramedullary nail fixation. Plan to discharge patient to son's house with home health, tomorrow, 09/06/2021 2. Appreciate medical management 3. Pain management - [place]; flexeril 4. GI ppx/DVT ppx - lovenox; senna 5. PT/OT - 50% weight bearing RLE w/walker as necessary and in CAM walker boot 6. Discharge planning - discharge to [facility] [place] tmrw with health services, sunday09/06/2021 Time with Patient: Less than 30
[2021-09-06] MEDS: CYCLOBENZAPRINE 10 MG TAB PO SCH (21:11)
[2021-09-07 03:21] VITALS: RESP 18
[2021-09-07 07:50] VITALS: BP 126/77; PULSE 69; TEMP 98.8
--- NOTE | 2021-09-07 08:30 | P.PN ---
Subjective Progress Note Date: 09/07/21 Principal diagnosis: Right tibia and fibula fracture patient seen and examined is doing well he saw swelling but is otherwise doing well. Denies any fevers chills or some breath or chest pain denies any numbness or tingling states is rated on today. Objective - Vital Signs Vital signs: Vital Signs Temp 98.8 F 09/07/21 07:49 Pulse 69 09/07/21 07:49 Resp 18 09/07/21 07:49 BP 126/77 09/07/21 07:49 Pulse Ox 95 09/07/21 07:49 Intake & Output 09/06/21 09/07/21 09/07/21 18:59 06:59 18:59 Other: Voiding Method Toilet Urinal # Voids 1 2 - Labs CBC & Chem 7: 09/06/21 02:57 09/06/21 02:57 Labs: Abnormal Lab Results - Last 24 Hours (Table) 09/06/21 Range/Units 13:50 Urine Protein 1+ H (Negative) Urine Ketones Trace H (Negative) Urine Bilirubin 1+ H (Negative) Urine Mucus Rare H (None) /hpf
[2021-09-07] MEDS: SENNOSIDES 8.6 MG TAB PO SCH (08:57)
[2021-09-07] MEDS: HYDROcodone/APAP 7.5-325MG 1 EACH TAB PO PRN (08:58)
[2021-09-07] MEDS ORDERED: ENOXAPARIN 40 MG/0.4 ML SYRINGE SQ SCH (09:00)
--- NOTE | 2021-09-07 09:57 | P.DS ---
Providers Date of admission: 09/05/21 15:16 Expected date of discharge: 09/07/21 Attending physician: Nimesh Trevizo, Consults: 09/03/21 17:21 Consult Physician Urgent Consulting Provider: Terrance Rod Consult Reason/Comments: Presurgical clearance Do you want consulting provider notified?: Yes 09/04/21 13:53 Consult Physician Routine Consulting Provider: Terrance Rod Consult Reason/Comments: medical management s/p tibia IM nail fixation Do you want consulting provider notified?: Yes Primary care physician: [facility] Hospital Course: Date of admission: 09/04/2021 Date of discharge: 09/07/2021 Admission diagnosis: Right distal 1/3 tibia and fibular fracture with proximal fibular fracture Discharge diagnosis: Same Attending physician: Dr. Trevizo Surgical procedures: Right tibia IM nail fixation via suprapatellar approach Brief history: Patient is a 71-year-old male with a history of right distal one third tibia and fibular fracture of proximal fibula fracture status post fall. At this point patient has failed conservative treatment measures and has opted to proceed with a elective right tibia IM nail fixation via suprapatellar approach. Hospital course: Details of patient's surgery can be found in operative report. Patient tolerated the procedure well and was subsequently transported to orthopedic floor. Patient's orthopeidc and medical care was provided daily. Patient had daily laboratory tests performed for evaluation of overall blood counts. Patient had daily physical therapy to include strengthening range of motion as well as education with walker ambulation. Patient was treated with Lovenox for their postoperative DVT prophylaxis during their inpatient stay. Patient was noted to have a relatively uneventful postoperative course. Patient reported satisfactory pain control with oral pain medications by postoperative day 3. Patient showed satisfactory progress with physical therapy. Patient moved steadily through the program and had no difficulty meeting the goals by postoperative day 3. Given patient's otherwise satisfactory course and having met physical therapy goals, plan is to discharge patient home with health services on postoperative day 3. Discharge condition/disposition: Patient will be discharged home with health services in stable condition. Discharge medications: Instructions are given on resumption of patient's normal daily medications per primary care recommendation, in addition patient will be prescribed [place] 7.5 mg/325 mg; aspirin 325 mg daily 21 days; Flexeril; senna. Discharge instructions: 1. Wound care and infection precautions, keep incision dry and covered while showering, no lotions, creams, moisturizers. No soaking, tubs, pools, hottubs. Do not scrub over the incision. 2. Weight-bear 50% RLE with walker as necessary until follow-up. 3. Ice and elevate when necessary. Do not exceed 20 minutes per hour with ice pack. 4. Utilize compression sleeve until seen at first follow up appointment. 5. Visiting nursing care. 6. Home physical therapy 7. Pain meds and anticoagulants per prescription. 8. Pain medication has potential to cause constipation. Increase oral fluid and fiber intake. Contact primary care provider if you have not had a bowel movement within 48 hours after discharge 9. No anti-inflammatory medication until discussed at first post operative visit, this including Motrin, Aleve, Mobic, Diclofenac. 10. Follow up in office at [address] Nimesh Trevizo 11. Follow up with your primary care doctor 7-10 days after discharge. 12. Contact [facility] with any questions, . Keep incisions clean, dry, intact. Placed Saran wrap over incisions while show ering. Meds: Auburn 7.5 mg/325 mg; aspirin 325 mg daily 21 days; Flexeril; senna. Assessment: Right distal 1/3 tibia and fibular fracture with proximal fibular fracture Procedures: Right tibia IM nail fixation via suprapatellar approach Patient Condition at Discharge: Good Plan - Discharge Summary Discharge Rx Participant: Yes New Discharge Prescriptions: New Cyclobenzaprine [Flexeril] 10 mg PO HS #20 tab Sennosides/Docusate Sodium [Senna Plus 8.6-50 mg Softgel] 1 each PO DAILY #20 capsule Aspirin 325 mg PO DAILY #21 tab HYDROcodone/APAP 7.5-325MG [Auburn 7.5] 1 - 2 each PO Q6HR PRN #32 tab PRN Reason: Pain No Action Tamsulosin [Flomax] 0.4 mg PO HS amLODIPine [Norvasc] 5 mg PO DAILY Multivit-Min/FA/Lycopen/Lutein [Centrum Silver Men Tablet] 1 tab PO DAILY Discharge Medication List Multivit-Min/FA/Lycopen/Lutein [Centrum Silver Men Tablet] 1 tab PO DAILY 09/03/21 [History] Tamsulosin [Flomax] 0.4 mg PO HS 09/03/21 [History] amLODIPine [Norvasc] 5 mg PO DAILY 09/03/21 [History] Aspirin 325 mg PO DAILY #21 tab 09/07/21 [Rx] Cyclobenzaprine [Flexeril] 10 mg PO HS #20 tab 09/07/21 [Rx] HYDROcodone/APAP 7.5-325MG [Auburn 7.5] 1 - 2 each PO Q6HR PRN #32 tab 09/07/21 [Rx] Sennosides/Docusate Sodium [Senna Plus 8.6-50 mg Softgel] 1 each PO DAILY #20 capsule 09/07/21 [Rx] Follow up Appointment(s)/Referral(s): Nimesh Trevizo DO [Doctor of Osteopathic Medicine] - 2 Weeks [facility]inic [Primary Care Provider] - 1-2 days Activity/Diet/Wound Care/Special Instructions: Discharge instructions: 1. Wound care and infection precautions, keep incision dry and covered while showering, no lotions, creams, moisturizers. No soaking, tubs, pools, hottubs. Do not scrub over the incision. 2. Weight-bear 50% RLE with walker as necessary until follow-up. 3. Ice and elevate when necessary. Do not exceed 20 minutes per hour with ice pack. 4. Utilize compression sleeve until seen at first follow up appointment. 5. Visiting nursing care. 6. Home physical therapy 7. Pain meds and anticoagulants per prescription. 8. Pain medication has potential to cause constipation. Increase oral fluid and fiber intake. Contact primary care provider if you have not had a bowel movement within 48 hours after discharge 9. No anti-inflammatory medication until discussed at first post operative visit, this including Motrin, Aleve, Mobic, Diclofenac. 10. Follow up in office at [address] Nimesh Trevizo 11. Follow up with your primary care doctor 7-10 days after discharge. 12. Contact [facility] with any questions, . Keep incisions clean, dry, intact. Placed Saran wrap over incisions while showering. Meds: Auburn 7.5 mg/325 mg; aspirin 325 mg daily 21 days; Flexeril; senna. Discharge Disposition: HOME WITH HOME HEALTH SERVICES Care Plan Goals (MU): [facility] Will deliver camm boot. Any questions please call agency.
--- NOTE | 2021-09-08 08:50 | P.PN ---
Subjective Progress Note Date: 09/07/21 09/07/2021 This is a 71-year-old male was recently admitted under orthopedic services for acute tibial fracture and underwent surgery and is being closely monitored. Patient continues with right side pain although is improving and has been working with physical therapy daily. Patient instructed to resume home medications for hypertension and also recommend follow-up with primary care provider outpatient. Patient is being scheduled for discharge to home and patient states he is going to stay with his son for a few weeks for recovery. Patient denies any chest pain, shortness of breath, or palpitations. Patient is afebrile. Patient tolerating diet and reports the passing gas but has not had a bowel movement as of yet. Encouraged increased activity as tolerated. Review of systems: Constitutional: No reports of fatigue, fever, or chills Cardiovascular: No reports of chest pain or palpitations Respiratory: No reports of shortness of breath or cough GI: No reports of nausea, vomiting, or diarrhea : No reports of dysuria or retention Neurovascular: No reports of weakness or numbness All medications have been reviewed PHYSICAL EXAMINATION: GENERAL: The patient is alert and oriented x4, Well developed, well nourished. HEENT: Pupils are round and equally reacting to light. EOMI. does have scleral icterus. No conjunctival pallor. Normocephalic, atraumatic. No pharyngeal erythe ma. No thyromegaly. CARDIOVASCULAR: S1 and S2 muffled PULMONARY: diminished breath sounds bilaterally with no wheezing or rhonchi noted. ABDOMEN: soft. obese. Non-distended, normoactive bowel sounds. No palpable organomegaly. MUSCULOSKELETAL: No joint swelling or deformity. EXTREMITIES: No cyanosis, clubbing, or pedal edema. NEUROLOGICAL: Gross neurological examination did not reveal any focal deficits. SKIN: No rashes. Assessment: Right tibial shaft and fibular fracture status post intramedullary nailing Hypertension Ongoing alcohol use History of prostate disorder DVT prophylaxis GI prophylaxis Full code Plan: Recommend to continue with current medications and symptomatic treatment. Encouraged increase activity as tolerated and also instructed the patient to follow-up with primary care provider on discharge. Patient is being discharged by orthopedic services today and patient states he will be going to stay with his son for a few weeks for recovery. Patient instructed to resume home medications and monitor blood pressure and follow-up with primary care provider. Will continue to follow along during hospitalization. Thank you for this consultation. Objective - Vital Signs Vital signs: Vital Signs Temp 98.8 F 09/07/21 07:49 Pulse 69 09/07/21 07:49 Resp 18 09/07/21 08:51 BP 126/77 09/07/21 07:49 Pulse Ox 95 09/07/21 07:49 Intake & Output 09/06/21 09/07/21 09/07/21 18:59 06:59 18:59 Intake Total 200 Balance 200 Intake: Oral 200 Other: Voiding Method Toilet Toilet Urinal Urinal # Voids 1 2 - Labs CBC & Chem 7: 09/06/21 02:57 09/06/21 02:57 Labs: Abnormal Lab Results - Last 24 Hours (Table) 09/06/21 Range/Units 13:50 Urine Protein 1+ H (Negative) Urine Ketones Trace H (Negative) Urine Bilirubin 1+ H (Negative) Urine Mucus Rare H (None) /hpf
== END 2021-09-07 11:49 | disposition home health service (06) | DRG 494 ==
LOC: EC 15:52 → 4SSUR 17:28 → OBSVTOIN 09-05 15:16
PROVIDERS: ADMIT Orthopaedic Surgery; ATTEND Orthopaedic Surgery
PROC: 8E0YXBF Computer Assisted Procedure of Lower Extremity, With Fluoroscopy (ICD-10-PCS; principal; 2021-09-04 12:00)
PROC: 0QSG06Z Reposition Right Tibia with Intramedullary Internal Fixation Device, Open Approach (ICD-10-PCS; principal; 2021-09-04 12:00)
DX: S82.391A Other fracture of lower end of right tibia, initial encounter for closed fracture (principal); S82.831A Other fracture of upper and lower end of right fibula, initial encounter for closed fracture; I10 Essential (primary) hypertension; Z20.822 Contact with and (suspected) exposure to COVID-19; N42.9 Disorder of prostate, unspecified; W00.0XXA Fall on same level due to ice and snow, initial encounter; Y93.01 Activity, walking, marching and hiking; Z79.899 Other long term (current) drug therapy
CPT/HCPCS: 27752; 71045; 80053; 81001; 84443; 85025; 85610; 85730; 86850; 86900; 86901; 87635; 93005; 96374; 96375; 99285

== ENCOUNTER 2022-12-19 13:56 | Emergency (ER) | payer OTHER, MEDICARE ==
[2022-12-19 14:41] VITALS: TEMP 98.8
[2022-12-19 15:31] LABS: Basophils % (A) 0 %; Eosinophils # (A) 0.2 k/uL (0-0.7); Eosinophils % (A) 1 %; HCT 42.8 % (39.0-53.0); HGB 14.5 gm/dL (13.0-17.5); Lymphocytes # (A) 1.5 k/uL (1.0-4.8); Lymphocytes % (A) 13 %; MCH 32.3 pg (25.0-35.0); MCV 94.9 fL (80.0-100.0); Monocytes # (A) 0.5 k/uL (0-1.0); Monocytes % (A) 4 %; Neutrophils % (A) 78 %; Platelet Count 308 k/uL (150-450); RBC 4.51 m/uL (4.30-5.90); RDW 12.2 % (11.5-15.5); WBC 11.5 k/uL (3.8-10.6)
[2022-12-19 15:45] LABS: ALT 20 U/L (4-49); AST 20 U/L (17-59); African American GFR (CKD) >90 (>60 ml/min/1.73 sqM); Albumin 3.9 g/dL (3.5-5.0); Alkaline Phosphatase 110 U/L (38-126); Anion Gap 8 mmol/L; Blood Urea Nitrogen 11 mg/dL (9-20); Calcium 9.1 mg/dL (8.4-10.2); Carbon Dioxide 27 mmol/L (22-30); Chloride 102 mmol/L (98-107); Glucose 102 mg/dL (74-99); Non-African American GFR(CKD) >90 (>60 ml/min/1.73 sqM); Potassium 4.2 mmol/L (3.5-5.1); Sodium 137 mmol/L (137-145); Total Bilirubin 0.7 mg/dL (0.2-1.3); Total Protein 6.9 g/dL (6.3-8.2)
[2022-12-19 16:18] LABS: Partial Thromboplastin Time 25.3 sec (22.0-30.0); Prothrombin Time 10.5 sec (9.0-12.0)
--- NOTE | 2022-12-19 17:10 | ED ---
SOB HPI - General Chief Complaint: Shortness of Breath Stated Complaint: sob - sent by urgent care Time Seen by Provider: 12/19/22 16:38 Source: patient Mode of arrival: ambulatory Limitations: no limitations - History of Present Illness Initial Comments: This patient is a 72-year-old man who presents to have evaluation after he was sent here from an urgent care clinic. The patient relates that on December 05, he had an episode where his chest felt tight and that it was hard for him to catch his breath. He states that he try to minimize his symptoms, he stated home and rested and then the following day was feeling a bit better though he did note that he does continue to have some exertional dyspnea. The patient states he finally got around to calling the clinic, was seen there and then after they did an EKG he was told to go to the emergency department as he may have had a heart attack. Patient currently is denying chest pain. No dyspnea at rest but he does get short of breath when he walks around his yard. No nausea or vomiting. No diaphoresis palpitations, lightheadedness or syncope. MD Complaint: shortness of breath Onset/Timin -: week(s) Severity scale (1-10): 0 Consistency: intermittent Improves With: nothing Worsens With: exertion Associated Symptoms: denies other symptoms - Related Data Home Medications Medication Instructions Recorded Confirmed Multivit-Min/FA/Lycopen/Lutein 1 tab PO DAILY 09/03/21 09/03/21 [Centrum Silver Men Tablet] Tamsulosin [Flomax] 0.4 mg PO HS 09/03/21 09/03/21 amLODIPine [Norvasc] 5 mg PO DAILY 09/03/21 09/03/21 Previous Rx's Medication Instructions Recorded Aspirin 325 mg PO DAILY #21 tab 09/07/21 Cyclobenzaprine [Flexeril] 10 mg PO HS #20 tab 09/07/21 HYDROcodone/APAP 7.5-325MG [Ewing 1 - 2 each PO Q6HR PRN #32 tab 09/07/21 7.5] Sennosides/Docusate Sodium [Senna 1 each PO DAILY #20 capsule 09/07/21 Plus 8.6-50 mg Softgel] Allergies Allergy/AdvReac Type Severity Reaction Status Date / Time No Known Allergies Allergy Verified 12/19/22 14:41 Review of Systems ROS Statement: Those systems with pertinent positive or pertinent negative responses have been documented in the HPI. ROS Other: All systems not noted in ROS Statement are negative. Constitutional: Denies: fever, chills, weakness Respiratory: Denies: cough, dyspnea Cardiovascular: Reports: as per HPI, dyspnea on exertion. Denies: palpitations, orthopnea, edema, syncope Gastrointestinal: Denies: abdominal pain, nausea, vomiting, diarrhea Genitourinary: Denies: dysuria, hematuria Musculoskeletal: Denies: back pain Skin: Denies: rash Neurological: Denies: headache, weakness, numbness Past Medical History Past Medical History: Hypertension, Prostate Disorder Additional Past Medical History / Comment(s): Had issues with kidney's possibly needed a stent; never followed through History of Any Multi-Drug Resistant Organisms: None Reported Past Surgical History: No Surgical Hx Reported Additional Past Surgical History / Comment(s): colonoscopy Past Anesthesia/Blood Transfusion Reactions: No Reported Reaction Past Psychological History: No Psychological Hx Reported Smoking Status: Former smoker Past Alcohol Use History: Occasional Past Drug Use History: Marijuana General Exam Limitations: no limitations General appearance: alert, in no apparent distress Head exam: Present: atraumatic, normocephalic Eye exam: Present: normal appearance. Absent: scleral icterus, conjunctival injection Neck exam: Present: normal inspection Respiratory exam: Present: normal lung sounds bilaterally. Absent: respiratory distress, wheezes, rales, rhonchi, stridor Cardiovascular Exam: Present: regular rate, normal rhythm, systolic murmur. Absent: diastolic murmur, rubs, gallop GI/Abdominal exam: Present: soft. Absent: distended, tenderness, guarding, rebound, rigid, mass Extremities exam: Present: normal inspection, normal capillary refill, pedal edema (Trace edema at the ankles bilaterally). Absent: calf tenderness Back exam: Present: normal inspection. Absent: CVA tenderness (R), CVA te nderness (L) Neurological exam: Present: alert Skin exam: Present: warm, dry, intact, normal color. Absent: rash Course Vital Signs 12/19/22 12/19/22 12/19/22 14:38 16:38 17:00 Temperature 98.8 F Pulse Rate 90 81 80 Respiratory 18 Rate Blood Pressure 149/89 146/75 O2 Sat by Pulse 97 98 97 Oximetry 12/19/22 12/19/22 12/19/22 17:30 18:00 18:30 Temperature Pulse Rate 81 81 81 Respiratory Rate Blood Pressure 128/88 133/89 O2 Sat by Pulse 97 97 96 Oximetry 12/19/22 12/19/22 19:00 21:17 Temperature Pulse Rate 91 92 Respiratory 20 Rate Blood Pressure 127/85 134/90 O2 Sat by Pulse 98 Oximetry Medical Decision Making - Medical Decision Making This patient is a 72-year-old man who was sent here from the urgent care with suspicion that he may have had a missed SC. The patient does appear to have a suspicious ECG, and he did have symptoms sometime ago for which she did not seek treatment at the time' The workup here does reveal significantly elevated d-dimer, and the patient sent for CT angiogram. The patient had chest x-ray which I interpreted as showing pleural effusion The patient had computed tomography scan of the chest which I interpreted as showing pleural effusion and pericardial effusion. I discussed the results of the patient's studies and was preparing to contact the admitting team, when I was informed by nursing that the patient wanted to go home. I discussed with him the rationale for being admitted, including having quicker cardiology evaluation and treatment plan. The patient states that he is feeling better and will go home and will follow with cardiology as outpatient. Discussed that there is risk associated with that choice, including cardiac disability and . Was pt. sent in by a medical professional or institution (GUERO Morris, FOOD BAGGING MACHINE OPERATOR, urgent care, hospital, or senior living...) When possible be specific @ -[Patient sent in by urgent care Did you speak to anyone other than the patient for history (EMS, parent, family, police, friend...)? What history was obtained from this source @ -[No] Did you review nursing and triage notes (agree or disagree)? Why? @ -[I reviewed and agree with nursing and triage notes] Were old charts reviewed (outside hosp., previous admission, EMS record, old EKG, old radiological studies, urgent care reports/EKG's, senior living records)? Report findings @ -[No old charts were reviewed] Differential Diagnosis (chest pain, altered mental status, abdominal pain women, abdominal pain men, vaginal bleeding, weakness, fever, dyspnea, syncope, headache, dizziness, GI bleed, back pain, seizure, CVA, palpatations, mental health, musculoskeletal)? @ -[Differential Chest Pain: Stable Angina, Unstable Angina, STEMI, NSTEMI Aortic Dissection, Pneumothorax, Musculoskeletal, Esophageal Spasm GERD, Cholecystitis, Pancreatitis, Zoster, this is not meant to be an all-inclusive list. EKG interpreted by me (3pts min.). @ -[As above] X-rays interpreted by me (1pt min.). @ -[As above CT interpreted by me (1pt min.). @ -[As above U/S interpreted by me (1pt. min.). @ -[None done] What testing was considered but not performed or refused? (CT, X-rays, U/S, labs)? Why? @ -[None] What meds were considered but not given or refused? Why? @ -[None] Did you discuss the management of the patient with other professionals (professionals i.e. , PA, FOOD BAGGING MACHINE OPERATOR, lab, RT, psych nurse, social services designee, wind science and planning, teacher, first officer, manager supply chain planning)? Give summary @ -[No] Was smoking cessation discussed for >3mins.? @ -[No] Was critical care preformed (if so, how long)? @ -[No] Were there social determinants of health that impacted care today? How? (Homelessness, low income, unemployed, alcoholism, drug addiction, transportatio n, low edu. Level, literacy, decrease access to med. care, intermediate, rehab)? @ -[No] Was there de-escalation of care discussed even if they declined (Discuss DNR or withdrawal of care, Hospice)? DNR status @ -[No] What co-morbidities impacted this encounter? (DM, HTN, Smoking, COPD, CAD, Cancer, CVA, ARF, Chemo, Hep., AIDS, mental health diagnosis, sleep apnea, morbid obesity)? @ -[None] Was patient admitted / discharged? Hospital course, mention meds given and route, prescriptions, significant lab abnormalities, going to OR and other pertinent info. @ -[The patient did decide to leave AGAINST MEDICAL ADVICE Undiagnosed new problem with uncertain prognosis? @ -[No] Drug Therapy requiring intensive monitoring for toxicity (Heparin, Nitro, Insulin, Cardizem)? @ -[No] Were any procedures done? @ -[No] Diagnosis/symptom? @ -[Pericardial effusion Pleural effusion Acute, or Chronic, or Acute on Chronic? @ -[Acute Uncomplicated (without systemic symptoms) or Complicated (systemic symptoms)? @ -[Uncomplicated Side effects of treatment? @ -[No] Exacerbation, Progression, or Severe Exacerbation? @ -[No] Poses a threat to life or bodily function? How? (Chest pain, USA, SC, pneumonia, PE, COPD, DKA, ARF, appy, cholecystitis, CVA, Diverticulitis, Homicidal, Suicidal, threat to staff... and all critical care pts) @ -[Yes, conditions may worsen to SC/respiratory failure/ - Lab Data Result diagrams: 12/19/22 14:55 12/19/22 15:01 Lab Results 12/19/22 12/19/22 12/19/22 Range/Units 14:55 15:01 15:01 WBC 11.5 H (3.8-10.6) k/uL RBC 4.51 (4.30-5.90) m/uL Hgb 14.5 (13.0-17.5) gm/dL Hct 42.8 (39.0-53.0) % MCV 94.9 (80.0-100.0) fL MCH 32.3 (25.0-35.0) pg MCHC 34.0 (31.0-37.0) g/dL RDW 12.2 (11.5-15.5) % Plt Count 308 (150-450) k/uL MPV 8.0 Neutrophils % 78 % Lymphocytes % 13 % Monocytes % 4 % Eosinophils % 1 % Basophils % 0 % Neutrophils # 9.0 H (1.3-7.7) k/uL Lymphocytes # 1.5 (1.0-4.8) k/uL Monocytes # 0.5 (0-1.0) k/uL Eosinophils # 0.2 (0-0.7) k/uL Basophils # 0.0 (0-0.2) k/uL PT 10.5 (9.0-12.0) sec INR 1.0 (<1.2) APTT 25.3 (22.0-30.0) sec D-Dimer 6.88 H (<0.60) mg/L FEU Sodium 137 (137-145) mmol/L Potassium 4.2 (3.5-5.1) mmol/L Chloride 102 (98-107) mmol/L Carbon Dioxide 27 (22-30) mmol/L Anion Gap 8 mmol/L BUN 11 (9-20) mg/dL Creatinine 0.73 (0.66-1.25) mg/dL Est GFR (CKD-EPI)AfAm >90 (>60 ml/min/1.73 sqM) Est GFR (CKD-EPI)NonAf >90 (>60 ml/min/1.73 sqM) Glucose 102 H (74-99) mg/dL Plasma Lactic Acid Marlo (0.7-2.0) mmol/L Calcium 9.1 (8.4-10.2) mg/dL Total Bilirubin 0.7 (0.2-1.3) mg/dL AST 20 (17-59) U/L ALT 20 (4-49) U/L Alkaline Phosphatase 110 (38-126) U/L Troponin I (0.000-0.034) ng/mL NT-Pro-B Natriuret Pep pg/mL Total Protein 6.9 (6.3-8.2) g/dL Albumin 3.9 (3.5-5.0) g/dL Coronavirus (PCR) (Not Detectd) 12/19/22 12/19/22 12/19/22 Range/Units 15:01 15:01 15:01 WBC (3.8-10.6) k/uL RBC (4.30-5.90) m/uL Hgb (13.0-17.5) gm/dL Hct (39.0-53.0) % MCV (80.0-100.0) fL MCH (25.0-35.0) pg MCHC (31.0-37.0) g/dL RDW (11.5-15.5) % Plt Count (150-450) k/uL MPV Neutrophils % % Lymphocytes % % Monocytes % % Eosinophils % % Basophils % % Neutrophils # (1.3-7.7) k/uL Lymphocytes # (1.0-4.8) k/uL Monocytes # (0-1.0) k/uL Eosinophils # (0-0.7) k/uL Basophils # (0-0.2) k/uL PT (9.0-12.0) sec INR (<1.2) APTT (22.0-30.0) sec D-Dimer (<0.60) mg/L FEU Sodium (137-145) mmol/L Potassium (3.5-5.1) mmol/L Chloride (98-107) mmol/L Carbon Dioxide (22-30) mmol/L Anion Gap mmol/L BUN (9-20) mg/dL Creatinine (0.66-1.25) mg/dL Est GFR (CKD-EPI)AfAm (>60 ml/min/1.73 sqM) Est GFR (CKD-EPI)NonAf (>60 ml/min/1.73 sqM) Glucose (74-99) mg/dL Plasma Lactic Acid Marlo 1.1 (0.7-2.0) mmol/L Calcium (8.4-10.2) mg/dL Total Bilirubin (0.2-1.3) mg/dL AST (17-59) U/L ALT (4-49) U/L Alkaline Phosphatase (38-126) U/L Troponin I <0.012 (0.000-0.034) ng/mL NT-Pro-B Natriuret Pep 410 pg/mL Total Protein (6.3-8.2) g/dL Albumin (3.5-5.0) g/dL Coronavirus (PCR) (Not Detectd) 12/19/22 Range/Units 17:41 WBC (3.8-10.6) k/uL RBC (4.30-5.90) m/uL Hgb (13.0-17.5) gm/dL Hct (39.0-53.0) % MCV (80.0-100.0) fL MCH (25.0-35.0) pg MCHC (31.0-37.0) g/dL RDW (11.5-15.5) % Plt Count (150-450) k/uL MPV Neutrophils % % Lymphocytes % % Monocytes % % Eosinophils % % Basophils % % Neutrophils # (1.3-7.7) k/uL Lymphocytes # (1.0-4.8) k/uL Monocytes # (0-1.0) k/uL Eosinophils # (0-0.7) k/uL Basophils # (0-0.2) k/uL PT (9.0-12.0) sec INR (<1.2) APTT (22.0-30.0) sec D-Dimer (<0.60) mg/L FEU Sodium (137-145) mmol/L Potassium (3.5-5.1) mmol/L Chloride (98-107) mmol/L Carbon Dioxide (22-30) mmol/L Anion Gap mmol/L BUN (9-20) mg/dL Creatinine (0.66-1.25) mg/dL Est GFR (CKD-EPI)AfAm (>60 ml/min/1.73 sqM) Est GFR (CKD-EPI)NonAf (>60 ml/min/1.73 sqM) Glucose (74-99) mg/dL Plasma Lactic Acid Marlo (0.7-2.0) mmol/L Calcium (8.4-10.2) mg/dL Total Bilirubin (0.2-1.3) mg/dL AST (17-59) U/L ALT (4-49) U/L Alkaline Phosphatase (38-126) U/L Troponin I (0.000-0.034) ng/mL NT-Pro-B Natriuret Pep pg/mL Total Protein (6.3-8.2) g/dL Albumin (3.5-5.0) g/dL Coronavirus (PCR) Not Detected (Not Detectd) - EKG Data -: EKG Interpreted by [facility] EKG shows normal: sinus rhythm, axis (Normal), intervals (Normal), QRS complexes (Suspected old inferior infarct based on Q waves inferiorly) Rate: normal (Rate 86 bpm) When compared to previous EKG there are: changes noted (The patient does appear to have new inferior Q waves versus the EKG from August 2021) Disposition Clinical Impression: Pleural effusion, Pericardial effusion Disposition: LEFT AGAINST MEDICAL ADVICE Condition: Undetermined Instructions (If sedation given, give patient instructions): Pleural Effusion (DC), Pericardial Effusion (ED) Is patient prescribed a controlled substance at d/c from ED?: No Referrals: [facility],Clinic [Primary Care Provider] - 1-2 days Ajay Samuels MD [STAFF PHYSICIAN] - 1-2 days Radha Pretty MD [STAFF PHYSICIAN] - 1-2 days
--- NOTE | 2022-12-19 17:36 | CT ---
CT CHEST FOR PULMONARY EMBOLISM. EXAMINATION TYPE: CT chest angio for PE DATE OF EXAM: 12/19/2022 INDICATION: Elevated d-dimer and shortness of breath. CT DLP: 413.7 mGycm, Automated exposure control for dose reduction was used. CONTRAST: Patient injected with 78ml mL of Isovue 370. COMPARISON: None TECHNIQUE: CT of the chest is performed on a spiral scan at 2 mm thick sections. Study is performed with intravenous contrast timed for evaluation for pulmonary embolism. This will limit additional po rtions of the evaluation. 3-D MIP images reconstructed by the technologist are reviewed on the compu ter in the coronal and sagittal planes. FINDINGS: No persistent filling defects are evident to suggest an acute pulmonary embolism. No mediastinal or hilar adenopathy enlarged by CT criteria is evident. The ascending aorta diameter at the level of the main pulmonary artery is 3.4 cm. The main pulmonary artery diameter at the bifur cation is 3.9 cm. Correlate for pulmonary hypertension. There is a moderate pericardial effusion There is a small left pleural effusion Limited CT section through the upper abdomen are unremarkable. IMPRESSIONS: 1. No acute pulmonary embolism. 2. Moderate pericardial effusion. 3. Small left pleural effusion
--- NOTE | 2022-12-19 20:13 | XR ---
EXAMINATION TYPE: XR chest 2V DATE OF EXAM: 12/19/2022 COMPARISON: 09/03/2021 INDICATION: Difficulty breathing TECHNIQUE: Frontal and lateral views of the chest are obtained. FINDINGS: The heart size is normal. The pulmonary vasculature is normal. Mild infiltrates at the cardiac apex. Correlate for atelectasis. Consider pneumonia. Follow-up can be performed. IMPRESSION: 1. Mild infiltrate at the cardiac apex level. Follow-up is recommended correlate for atelectasis and pneumonia.
[2022-12-19 21:25] VITALS: BP 134/90; PULSE 92; RESP 20
== END 2022-12-19 21:25 | disposition left against medical advice (07) ==
LOC: EC 13:56
DX: J90 Pleural effusion, not elsewhere classified (principal); I31.39 Other pericardial effusion (noninflammatory); I10 Essential (primary) hypertension; F12.90 Cannabis use, unspecified, uncomplicated; Z87.891 Personal history of nicotine dependence; Z79.899 Other long term (current) drug therapy; Z20.822 Contact with and (suspected) exposure to COVID-19; Z53.29 Procedure and treatment not carried out because of patient's decision for other reasons
CPT/HCPCS: 36415; 93005; 85379; 83880; 80053; 83605; 84484; 85025; 85610; 85730; 87635; 71046; 71275; 99285; Q9967

== ENCOUNTER 2023-02-27 11:11 | Day surgery (SDC) | payer MEDICARE ==
[2023-02-19 17:12] VITALS: BMI 26.2
[~2023-02-27 11:11] MED LIST: ALPRAZolam 0.25 MG TAB PO PRN; ALPRAZolam 0.5 MG TAB PO PRN; ASPIRIN 325 MG TAB PO STA; ATORVASTATIN 80 MG TAB PO STA; HEPARIN SODIUM,PORCINE (1 ML) 2,500 UNIT in SODIUM CHLORIDE 0.9% 250 ML IRRIGATION PRN; HEPARIN SODIUM,PORCINE 10,000 UNIT in SODIUM CHLORIDE 0.9% 1,000 ML IRRIGATION PRN; NITROGLYCERIN SL TABS 0.4 MG TAB SUBLINGUAL PRN; SODIUM CHLORIDE 0.9% 1,000 ML in EMPTY BAG 1 BAG IV SCH
[2023-02-27] MEDS ORDERED: SODIUM CHLORIDE 0.9% 1,000 ML IV ONE (11:32)
[2023-02-27 11:46] VITALS: BP 131/80; PULSE 70; RESP 16; TEMP 97.8
[2023-02-27 11:46] LABS: Glucose,Whole Blood 114 mg/dL (70-110)
[2023-02-27 11:55] LABS: Basophils % (A) 0 %; Eosinophils # (A) 0.2 k/uL (0-0.7); Eosinophils % (A) 2 %; HCT 45.6 % (39.0-53.0); HGB 15.6 gm/dL (13.0-17.5); Lymphocytes # (A) 1.6 k/uL (1.0-4.8); Lymphocytes % (A) 16 %; MCH 31.9 pg (25.0-35.0); MCHC 34.3 g/dL (31.0-37.0); MCV 93.2 fL (80.0-100.0); Mean Platelet Volume 8.7; Monocytes # (A) 0.4 k/uL (0-1.0); Monocytes % (A) 4 %; Neutrophils # (A) 7.6 k/uL (1.3-7.7); Neutrophils % (A) 75 %; Platelet Count 158 k/uL (150-450); RBC 4.89 m/uL (4.30-5.90); WBC 10.1 k/uL (3.8-10.6)
[2023-02-27] MEDS ORDERED: VERAPAMIL 2.5 MG/ML 2 ML AMP ONE (12:05)
[2023-02-27] MEDS ORDERED: LIDOCAINE 1% INJ 10MG/ML (20 ML MDV) ONE (12:05)
[2023-02-27] MEDS ORDERED: HEPARIN SODIUM 1,000 UN/ML (10ML VL) ONE (12:07)
[2023-02-27] MEDS ORDERED: fentaNYL (PF) 50 MCG/ML 2 ML AMP ONE (12:07)
[2023-02-27] MEDS ORDERED: fentaNYL (PF) 50 MCG/ML 2 ML AMP IVP ONE (12:20)
[2023-02-27] MEDS ORDERED: MIDAZOLAM 2 MG/2 ML VIAL IVP ONE (12:20)
[2023-02-27] MEDS: LIDOCAINE 1% INJ 10MG/ML (30 ML VIAL-PF) SQ ONE ×2 (12:25→12:27)
[2023-02-27] MEDS ORDERED: VERAPAMIL SYRINGE (5 MG/10 ML) INTRAARTER ONE (12:25)
[2023-02-27 12:26] LABS: African American GFR (CKD) >90 (>60 ml/min/1.73 sqM); Anion Gap 10 mmol/L; Blood Urea Nitrogen 14 mg/dL (9-20); Calcium 9.5 mg/dL (8.4-10.2); Carbon Dioxide 28 mmol/L (22-30); Chloride 101 mmol/L (98-107); Glucose 118 mg/dL (74-99); Non-African American GFR(CKD) 86 (>60 ml/min/1.73 sqM); Sodium 139 mmol/L (137-145)
[2023-02-27] MEDS ORDERED: HEPARIN SODIUM 1,000 UN/ML (10ML VL) IVP ONE (12:49)
[2023-02-27] MEDS ORDERED: IOPAMIDOL-370 100ML BTL INJ ONE ×2 (13:00→13:02)
[2023-02-27] MEDS ORDERED: IOPAMIDOL-370 100ML BTL IVP ONE (13:00)
[2023-02-27 13:03] LABS: O2 Sat Blood Gas 74.5 %
[2023-02-27 13:04] LABS: O2 Sat Blood Gas 95.5 %
[2023-02-27 13:07] LABS: O2 Sat Blood Gas 76.3 %
[2023-02-27 13:09] LABS: O2 Sat Blood Gas 69.3 %
[2023-02-27 13:09] LABS: O2 Sat Blood Gas 69.6 %
--- NOTE | 2023-02-27 13:33 | P.CARDCATH ---
Description of Procedure: PROCEDURES PERFORMED: Left and right heart catheterization, bilateral coronary angiography, left ventriculogram, ultrasound guided arterial access INDICATION: VSD, aneurysm CONSENT:I have discussed the risks, benefits and alternative therapies for the above-mentioned procedure and for both sedation/analgesia as well as necessary blood product administration, if indicated, as they pertain to this patient. The patient has indicated understanding and acceptance of the risks and procedures discussed. PROCEDURE: After the risks, benefits and alternatives of the above mentioned procedure explained in detail with the patient, informed consent was obtained. Patient was taken to the catheterization lab and prepped and draped in usual fashion. Ultrasound guidance was used to assess for arterial access. 1% lidocaine was used to anesthetize the right radial artery. A 6-Welsh sheath was placed in the right radial artery using modified Seldinger technique and ultrasound guidance. Left coronary angiography was performed with a 5-Welsh JL 3.5 catheter and right coronary angiography was performed with a 6-Welsh AR2 catheter in various views. A 5-Welsh FR5 catheter was inserted into the left ventricle and pressure measurements were obtained. A left ventriculogram was performed in the CHEEK projection as well as KARIS cranial projection with a power injection showing a VSD, and from aneurysmal portion. The right radial sheath was removed and a TR band was placed with hemostasis achieved. The patient tolerated the procedure well. Patient was transported back to the post catheterization holding area in stable condition. Conscious Sedation: Patient was monitored under the direct supervision of myself for conscious sedation using Versed and fentanyl for a total duration of 40 minutes HEMODYNAMICS: Ao: 105/67 LV: 101/9, LVEDP 29 PCWP: 20 PA: 32/13 RV: 28/1 RA: 8 Right Radial oxygen saturation: 96% PA oxygen saturation: 75% RV oxygen saturation: 78% RA oxygen saturation: 69% SVC oxygen saturation: 70% IVC oxygen saturation: 76% Cardiac outpt by JOSUÉ: 5.6 L/min Cardiac index by JOSUÉ: 2.79 L/min Cardiac outpt by thermodilution: 7.2 L/min Cardiac index by thermodilution: 3.5 L/min/m2 Qp/Qs: 1.25 SELECTIVE CORONARY ARTERIOGRAPHY: LEFT MAIN: The left main is a large caliber vessel which bifurcates into the LAD and circumflex. There is no significant stenosis. LEFT ANTERIOR DESCENDING CORONARY ARTERY: LAD is a large caliber vessel which wraps around to the apex. There are mild luminal irregularities including 20- 30% mid LAD stenosis. LEFT CIRCUMFLEX CORONARY ARTERY: Left circumflex is a moderate caliber vessel 10-20% circumflex stenosis. RIGHT CORONARY ARTERY: The right coronary artery is a large caliber vessel which gives off a PDA and PLV branch and is the dominant vessel. There are mild 10- 20% mid RCA stenoses. There is 100% PDA stenosis. LEFT VENTRICULOGRAM: Left ventricular ejection fraction 45% with inferior hypokinesis and inferior aneurysm with VSD coming from inferior portion. FINAL IMPRESSION: 1. CAD as described above including 20-30% mid LAD stenosis, 10-20% circumflex, 100% PDA stenosis 2. Left ventricular ejection fraction 45% with inferior aneurysm and VSD 3. Mild right sided oxygen step up due to left to right shunt/ VSD 4. VSD with Qp/Qs 1.25 5. Elevated left and right sided pressures PLAN: 1. Aggressive risk factor modification per most recent ACC/AHA guidelines. 2. Surgery evaluation of VSD. Medical therapy of PDA lesion given subacute presentation.
--- NOTE | 2023-02-27 16:07 | P.GSCN ---
History of Present Illness Consult date: 02/27/23 Reason for Consult: CAD with a 20-30% mid LAD stenosis, 10-20% circumflex stenosis, 100% PDA stenosis, left ventricular ejection fraction 45% with an inferior aneurysm and VSD, mild right sided oxygen step up due to left to right shunt/VSD Requesting physician: Frederic Alvarez History of present illness: This is a 73-year-old gentleman who [facility]. He also follows with Dr. Alvarez for his urology care. He has a past medical history significant for hypertension, hyperlipidemia, diabetes mellitus type 2, history of previous episode of chest pain with abnormal EKG, possibly related to myocardial infarction, new-onset dyspnea on exertion, consistent with heart failure, lower extremity edema, right greater than left, component of venous insufficiency, as well as related to amlodipine, plus or minus component of heart failure, known systolic murmur, concerning for VSD possibly related to myocardial infarction, BPH, exposure to agent orange in [place], daily marijuana use, smokes around 3 joints per day, and remote history of nicotine dependence quit smoking in 2001. The patient reports in November 2022 he had an episode of acute onset of shortness of breath with some chest pressure. He reports that since his episode of shortness of breath in November 2022 he has had progressive shortness of breath with mild exertion. He denies any complaints of recent chest pain/chest pressure, fever, chills, nausea, vomiting, palpitations, diarrhea, constipation, hemoptysis, lightheadedness, presyncope or syncope. In November 2022 due to his acute onset of shortness of breath and presented to an urgent care clinic where he underwent a 12-lead EKG which was concerning for a prior myocardial infarction and he was recommended to present to the emergency department here at [facility]. During his admission in November [address] chest angio was completed which demonstrated no acute pulmonary embolism, a moderate pericardial effusion and a small left pleural effusion. It was also noted that the patient had some additional coronary artery calcifications. Subsequently the patient underwent a repeat 12-lead EKG in 2022 which showed continued Q-wave, 2, 3 and aVF with incomplete left bundle branch block. He was also noted to have on exam a 3/6 systolic murmur posteriorly directed and somewhat concerning for a possible VSD. On 02/08/2023 the patient underwent a transthoracic 2-D echocardiogram which showed an ejection fraction of 40%, a large muscular ventricular septal defect, a large 4.3 long and 2.8 cm wide basal mid inferior and inferoseptal aneurysm, mild LVH, mild mitral valve regurgitation, mild tricuspid valve regurgitation and of right ventricular systolic pressure of 41 mmHg. Due to the above-mention ed findings and the patient's symptoms he was recommended to undergo a heart catheterization which was completed today by Dr. Alvarez. The heart catheterization demonstrated coronary artery disease including a 20-30% stenosis to his mid left anterior descending coronary artery, a 10-20% stenosis to a circumflex coronary artery, and 100% stenosis to his PDA coronary artery. It also demonstrated left ventricular ejection fraction of 45% with inferior aneurysm and VSD, mild right-sided auction step up due to the left to right shunt/VSD, VSD with QP/QS 1.25, elevated left and right sided pressures, RV pressure 28 over 1 and a cardiac output by thermodilution 7.2 L/m and cardiac index by thermodilution 35.5 L/m/m. Due to the findings on the cardiac catheterization a consult was placed for cardiothoracic surgery for further evaluation and treatment recommendations. The patient also underwent an FEV1 as an outpatient on 02/21/2023 due to his shortness of breath which showed her predicted value of 75% and a base volume of 2.22. Review of Systems A 14 point review of systems was completed and was negative except as mentioned in the HPI. Past Medical History Past Medical History: Coronary Artery Disease (CAD), Chest Pain / Angina, Heart Failure, Diabetes Mellitus, Hyperlipidemia, Hypertension, Myocardial Infarction (non Q-wave), Osteoarthritis (OA), Prostate Disorder Additional Past Medical History / Comment(s): BPH, scoliosis, three affiliated, tinnitus, states sob and no energy., See Cardiology H & P. History of Any Multi-Drug Resistant Organisms: None Reported Past Surgical History: Orthopedic Surgery, Tonsillectomy Additional Past Surgical History / Comment(s): colonoscopy, LEFT LEG FX WITH CHAR AND PINS Past Anesthesia/Blood Transfusion Reactions: No Reported Reaction Past Psychological History: PTSD Smoking Status: Former smoker (With smoking in 2021) Past Alcohol Use History: Occasional Additional Past Alcohol Use History / Comment(s): quit smoking approx 1 year ago, states started as teenager and quit cigarettes and went to little cigars, smoked up to 1 ppd. Past Drug Use History: Marijuana Additional Drug Use History / Comment(s): current marijuana use- instructed not to use 24 hrs prior to procedure. - Past Family History Mother Family Medical History: Hypertension Medications and Allergies Home Medications Medication Instructions Recorded Confirmed Type Tamsulosin [Flomax] 0.8 mg PO HS 09/03/21 02/27/23 History amLODIPine [Norvasc] 5 mg PO DAILY 09/03/21 02/19/23 History Atorvastatin Calcium 20 mg PO HS 02/19/23 02/27/23 History Cholecalciferol [Vitamin D3 (10 10 mcg PO DAILY 02/19/23 02/27/23 History Mcg = 400 Iu)] metFORMIN HCL 500 mg PO BID 02/19/23 02/27/23 History Allergies Allergy/AdvReac Type Severity Reaction Status Date / Time ibuprofen [From Advil] AdvReac Unknown Rash/Hives Verified 02/27/23 11:39 naproxen [From Aleve] AdvReac Unknown Rash/Hives Verified 02/27/23 11:39 Surgical - Exam Vital Signs Temp Pulse Resp BP Pulse Ox 97.8 F 70 16 131/80 98 02/27/23 11:43 02/27/23 11:43 02/27/23 11:43 02/27/23 11:43 02/27/23 11:43 - General well developed, well nourished, no distress, no pain - Eyes PERRL, normal ocular movement, no pale, no icteric - ENT normal pinna, normal nares, normal mucosa, decreased hearing, dentures (Upper plate) - Neck Neck is supple, no lymphadenopathy. no masses, no bruits, trachea midline, no venous distension - Respiratory Respirations are symmetrical and nonlabored. Lungs sounds essentially clear throughout, no wheezes, rhonchi or crackles. Diminished to his bilateral bases. - Cardiovascular Regular rhythm and rate. S1 and S2 present, negative for S3 or gallop. Positive systolic murmur 3/6. - Abdomen Abdomen is soft, nontender nondistended. Active bowel sounds present in all 4 abdominal quadrants. No guarding or rigidity. - Genitourinary Deferred - Rectum Deferred - Integumentary Skin is warm and dry. No clubbing or cyanosis is present. no rash, no growths, no abnormal pigmentation - Neurologic No focal deficits. - Musculoskeletal Moves all 4 extremities with equal strength bilaterally. normal gait, normal posture - Psychiatric oriented to time, oriented to person, oriented to place, speech is normal, memory intact Results - Labs 02/27/23 11:30 02/27/23 11:30 Abnormal Lab Results - Last 24 Hours (Table) 02/27/23 02/27/23 Range/Units 11:30 11:42 Glucose 118 H (74-99) mg/dL POC Glucose (mg/dL) 114 H (70-110) mg/dL Diabetes panel 02/27/23 Range/Units 11:30 Sodium 139 (137-145) mmol/L Potassium 4.0 (3.5-5.1) mmol/L Chloride 101 (98-107) mmol/L Carbon Dioxide 28 (22-30) mmol/L BUN 14 (9-20) mg/dL Creatinine 0.83 (0.66-1.25) mg/dL Glucose 118 H (74-99) mg/dL Calcium 9.5 (8.4-10.2) mg/dL Calcium panel 02/27/23 Range/Units 11:30 Calcium 9.5 (8.4-10.2) mg/dL Pituitary panel 02/27/23 Range/Units 11:30 Sodium 139 (137-145) mmol/L Potassium 4.0 (3.5-5.1) mmol/L Chloride 101 (98-107) mmol/L Carbon Dioxide 28 (22-30) mmol/L BUN 14 (9-20) mg/dL Creatinine 0.83 (0.66-1.25) mg/dL Glucose 118 H (74-99) mg/dL Calcium 9.5 (8.4-10.2) mg/dL Adrenal panel 02/27/23 Range/Units 11:30 Sodium 139 (137-145) mmol/L Potassium 4.0 (3.5-5.1) mmol/L Chloride 101 (98-107) mmol/L Carbon Dioxide 28 (22-30) mmol/L BUN 14 (9-20) mg/dL Creatinine 0.83 (0.66-1.25) mg/dL Glucose 118 H (74-99) mg/dL Calcium 9.5 (8.4-10.2) mg/dL - Imaging Additional studies: Cardiac catheterization results reviewed by Dr. Caleb Sapp. Assessment and Plan Assessment: Coronary artery disease Left ventricular ejection fraction 45% with inferior aneurysm and VSD on cardiac catheterization completed 02/27/2023 History of episodes of chest pain with abnormal EKG in November 2022, possibly related to [place] Systolic murmur, possibly secondary to VSD Progressive shortness of breath, possibly secondary to above Hypertension Hyperlipidemia Diabetes mellitus type 2 BPH Exposure to agent orange in [place] PTSD Daily marijuana use smokes about 3 joints per day Remote history of nicotine dependence quit smoking in 2021 Plan: The patient was seen and examined at his bedside in the extended stay unit. His chart and diagnostics were reviewed. His case was discussed in detail with Dr. Caleb Sapp from cardiothoracic surgery. His 2-D echocardiogram was obtained from cardiology office and his FEV1 study was obtained from pulmonary critical care office. The patient is scheduled to see Dr.Shrey Crump in the office on 03/02/2023 at 11:45 AM. Continue to maximize medical management. Medical management and other comorbidities per primary care service and cardiology. More recommendations to follow based on his follow-up appointment this coming 03/02/2023. Thank you Dr. Alvarez for this consult and we will look forward to working with you in the care of this patient. I have personally seen and examined the patient, performed the documentation and the assessment and plan as written. 30 minutes spent on the visit . Gopal EL
== END 2023-02-27 17:01 | disposition home or self-care (01) ==
LOC: CATHCVL 11:11
PROVIDERS: ATTEND Internal Medicine
DX: I25.10 Atherosclerotic heart disease of native coronary artery without angina pectoris (principal); I10 Essential (primary) hypertension; E78.5 Hyperlipidemia, unspecified; E11.9 Type 2 diabetes mellitus without complications; I44.7 Left bundle-branch block, unspecified; F12.90 Cannabis use, unspecified, uncomplicated; M19.90 Unspecified osteoarthritis, unspecified site; Z87.891 Personal history of nicotine dependence; Z79.899 Other long term (current) drug therapy; Z82.49 Family history of ischemic heart disease and other diseases of the circulatory system
CPT/HCPCS: 93460; 76937; 80048; 85018; 82810; 85025; C1769 ×2; C1894; C1751; J2250; J2001; J3010; J1644; Q9967

== ENCOUNTER → 2023-03-22 | Outpatient (CLI) | payer OTHER ==
--- NOTE | 2023-03-22 13:56 | CTL ---
EXAMINATION TYPE: CT Low Dose Lung DATE OF EXAM ORDERED: 03/22/2023 HISTORY: Z87.891. Lung cancer screening CT DLP: 99.[address] CTDI: 2.5 mGy Automated exposure control for dose reduction was used. SCREENING VISIT: First screening visit COMPARISON: CTA chest 12/19/2022 TECHNIQUE: Low dose computed tomography scan was performed through the chest at 1 mm thick sections a nd reconstructed images in multiple planes at 1 mm and [address] DIAGNOSTIC QUALITY: Satisfactory FINDINGS: LUNG NODULES: Few scattered calcified granulomas. No clinically significant pulmonary nodule. LUNGS: COPD: Severity: Mild Fibrosis: Severity: Minimal Lymph nodes: None Other findings: None RIGHT PLEURAL SPACE: Effusion: None Calcification: None Thickening: None Pneumothorax: None LEFT PLEURAL SPACE: Effusion: None Calcification: None Thickening: None Pneumothorax: None HEART: Heart Size: Normal Coronary Calcification: Small Pericardial Effusion: None OTHER FINDINGS: Upper abdomen: Right renal cyst measuring up to 3.0 cm redemonstrated. Bony thorax: No acute osseous abnormality. Mild S-shaped scoliotic curvature. Multilevel degenerative changes of the thoracic spine. Supraclavicular region: None Other: None IMPRESSION: No clinically significant pulmonary nodules. CT LUNG RAD AND CT CHEST RECOMMENDATION: Lung-Rad 2 Benign Appearance or Behavior: Continue annual sc reening with LDCT in 12 months. S Modifier (other clinically significant findings): None
== END | disposition home or self-care (01) ==
LOC: RADCTMAIN 12:31
DX: Z12.2 Encounter for screening for malignant neoplasm of respiratory organs (principal); Z87.891 Personal history of nicotine dependence
CPT/HCPCS: 71271